=== PATIENT | female | born 1965 | race Caucasian/White ===

== ENCOUNTER 2023-09-19 15:53 | Outpatient (RCR) | payer OTHER, SELFPAY | END 2023-10-09 15:04 | disposition home or self-care (01) | LOC: PT 15:53 | PROVIDERS: PCP Family Medicine; Visit Provider Family Medicine | DX: R42 Dizziness and giddiness (principal) | CPT/HCPCS: 95992; 97112; 97161 ==

== ENCOUNTER 2025-06-01 19:36 | Outpatient (REF) | payer OTHER, SELFPAY ==
--- OUTSIDE RECORDS SUMMARY | 2025-06-01 13:45 | XMS_ITS ---
Author Name Auto Generated Organization [facility] Care Team Providers Care Migratory Worker Name Role Phone RYNE BLACKMON Referring Unavailable RYNE BLACKMON Attending Unavailable RYNE TOUSSAINT Attending Unavailable CARMEN MORENO Referring Unavailable BLACKMONRYNE Referring Unavailable RYNE BLACKMON Attending Unavailable RYNE TOUSSAINT Attending Unavailable CARMEN MORENO Referring Unavailable RYNE BLACKMON Referring Unavailable RYNE BLACKMON Attending Unavailable XIOMARA CASTILLO Attending Unavailable CARMEN MORENO Referring Unavailable XIOMARA CASTILLO Attending Unavailable CARMEN MORENO Referring Unavailable BLACKMON, RYNE Barajas Referring Unavailable RYNE BLACKMON Attending Unavailable RYNE BLACKMON Referring Unavailable DONNA CARRANZA Attending Unavailable Carmen Moreno Attending Unavailable Carmen Moreno Admitting Unavailable Carmen Moreno Attending Unavailable Ross, Carmen E. Admitting Unavailable Carmen Moreno Attending Unavailable Carmen Moreno Attending Unavailable Carmen Moreno Attending Unavailable Carmen Moreno Attending Unavailable Becca Hoang Attending Unavailable Carmen Moreno Attending Unavailable Carmen Moreno Attending Unavailable Carmen Moreno Admitting Unavailable Carmen Moreno Referring Unavailable Carmen Moreno Attending Unavailable PROBLEMS No Problem Records Found PROCEDURES No Procedure Records Found RESULTS FAMILY MEDICINE OFFICE/CLINI C NOTE Observed: 04/17/2025 2:54 PM Status: F Source: [facility] Medicine Office/Clini c Note HPI Staff Melissa is a 60 year old female presenting for acute pain Onset: 04/02/25 Fevers: no Sinus congestion: yes Sneezing: Ear pain: left ear is work than the right Ear itching, popping, fullness, ringing, muffled hearing: no Ear drainage: no Swollen nodes: no Sore throat: no Ear pain worse with chewing: no Itching: no Difficulty hearing: no Chest hurts only when coughing, has been using cough medicine, Mucinex, cough drops History of Present Illness pt presents today with URI symptoms Review of Systems PHQ Score Initial Depression Screen Score: 3 SCORE Detailed Depression Screen Score: 4 Total Depression Screen Score: 7 Physical Exam Vitals & Measurements T: 37.1 ???C(Tympanic) HR: 80(Peripheral) RR: 18 BP: 130/76 SpO2: 99% HT: 67 in HT: 170.0 cm WT: 82.1 kg WT: 180.999 lb BMI: 28.41 General: alert, no acute distress ENMT: oral mucosa moist, no pharyngeal erythema or exudate, ALLI TM full of fluid, right TM and canal red Cardiovascular: regular rate and rhythm, normal peripheral perfusion Respiratory: Lungs CTA, respirations non labored Extremities: no deformity, no trauma Neurological: oriented x 4, LOC appropriate for age, CN II-XII intact, motor strength equal & normal bilaterally, speech normal Assessment/Plan 1. Right otitis media (H66.91: Otitis media, unspecified, right ear) right otitis media noted on exam. will send in Augmentin Ordered: amoxicillin-clavulanate, = 1 tab(s), Oral, q12hr, X 7 day(s), # 14 tab(s), Refills(s) 0, Pharmacy: [facility], 170, cm, 04/17/25 15:01:00 EDT, Height/Length Dosing, 82.1, kg, 04/17/25 15:01:00 EDT, Weight Dosing brompheniramine/dextromethorphan/PSE, 5 mL, Oral, QID for cold symptoms, 200 mL, Refill(s) 0, [facility], 170, cm, 04/17/25 15:01:00 EDT, Height/Length Dosing, 82.1, kg, 04/17/25 15:01:00 EDT, Weight Dosing 2. Cough (R05.9: Cough, unspecified) severe bronchial cough will send Bromfed and Kenalog was given in office Ordered: amoxicillin-clavulanate, = 1 tab(s), Oral, q12hr, X 7 day(s), # 14 tab(s), Refills(s) 0, Pharmacy: [facility], 170, cm, 04/17/25 15:01:00 EDT, Height/Length Dosing, 82.1, kg, 04/17/25 15:01:00 EDT, Weight Dosing brompheniramine/dextromethorphan/PSE, 5 mL, Oral, QID for cold symptoms, 200 mL, Refill(s) 0, [facility], 170, cm, 04/17/25 15:01:00 EDT, Height/Length Dosing, 82.1, kg, 04/17/25 15:01:00 EDT, Weight Dosing 3. Fluid level behind tympanic membrane of both ears (H65.93: Unspecified nonsuppurative otitis media, bilateral) kenalog 40mg given in office today Ordered: amoxicillin-clavulanate, = 1 tab(s), Oral, q12hr, X 7 day(s), # 14 tab(s), Refills(s) 0, Pharmacy: [facility], 170, cm, 04/17/25 15:01:00 EDT, Height/Length Dosing, 82.1, kg, 04/17/25 15:01:00 EDT, Weight Dosing brompheniramine/dextromethorphan/PSE, 5 mL, Oral, QID for cold symptoms, 200 mL, Refill(s) 0, [facility], 170, cm, 04/17/25 15:01:00 EDT, Height/Length Dosing, 82.1, kg, 04/17/25 15:01:00 EDT, Weight Dosing 4. BMI 28.0-28.9,adult (Z68.28: Body mass index [BMI] 28.0-28.9, adult) BMI education given Ordered: amoxicillin-clavulanate, = 1 tab(s), Oral, q12hr, X 7 day(s), # 14 tab(s), Refills(s) 0, Pharmacy: [facility], 170, cm, 04/17/25 15:01:00 EDT, Height/Length Dosing, 82.1, kg, 04/17/25 15:01:00 EDT, Weight Dosing brompheniramine/dextromethorphan/PSE, 5 mL, Oral, QID for cold symptoms, 200 mL, Refill(s) 0, [facility], 170, cm, 04/17/25 15:01:00 EDT, Height/Length Dosing, 82.1, kg, 04/17/25 15:01:00 EDT, Weight Dosing 5. Non-smoker for medical reasons (Z78.9: Other specified health status) continue not smoking Ordered: amoxicillin-clavulanate, = 1 tab(s), Oral, q12hr, X 7 day(s), # 14 tab(s), Refills(s) 0, Pharmacy: [facility], 170, cm, 04/17/25 15:01:00 EDT, Height/Length Dosing, 82.1, kg, 04/17/25 15:01:00 EDT, Weight Dosing brompheniramine/dextromethorphan/PSE, 5 mL, Oral, QID for cold symptoms, 200 mL, Refill(s) 0, [facility], 170, cm, 04/17/25 15:01:00 EDT, Height/Length Dosing, 82.1, kg, 04/17/25 15:01:00 EDT, Weight Dosing Follow-up No qualifying data available Problem List/Past Medical History Ongoing Abnormal mammogram Annual physical exam BMI 27.0-27.9,adult Breast cancer screening Chronic pain of right knee Cough Eustachian tube disorder Fluid level behind tympanic membrane of both ears HLD (hyperlipidemia) Impacted ear wax Non-smoker Overweight (BMI 25.0-29.9) Primary insomnia Right otitis media Tension headache Historical No qualifying data Procedure/Surgical History Arthroscopy of knee, Removal of gallbladder. Medications Augmentin 875 mg oral tablet, 1 tab(s), Oral, q12hr Bromfed DM oral syrup, 5 mL, Oral, QID, PRN Lipitor 40 mg Tab, 40 mg= 1 tab(s), Oral, Daily, 1 refills Allergies No Known Medication Allergies Social History Alcohol Never., 09/22/2024 Substance Abuse Never., 09/22/2024 Tobacco Never (less than 100 in lifetime) Tobacco Use:. Never Smokeless Tobacco Use:. Household tobacco concerns: No. Yes, 03/23/2025 Family History Acute myocardial infarction: Father. Primary malignant neoplasm of female breast: Mother. Immunizations Vaccine Date Status Comments influenza virus vaccine, inactivated 08/27/2023 Given SARS-CoV-2 (COVID-19) [id number] 09/28/2022 Recorded influenza virus vaccine, inactivated 09/02/2022 Recorded influenza virus vaccine, inactivated 08/2022 Recorded SARS-CoV-2 (COVID-19) mRNA-1273 vaccine 10/05/2021 Given Prophylaxis influenza virus vaccine, inactivated 09/07/2021 Recorded SARS-CoV-2 (COVID-19) mRNA-1273 vaccine 03/05/2021 Recorded SARS-CoV-2 (COVID-19) mRNA-1273 vaccine 02/05/2021 Recorded influenza virus vaccine, inactivated 09/01/2020 Recorded influenza virus vaccine, inactivated 10/11/2019 Recorded influenza virus vaccine, inactivated 09/23/2018 Recorded influenza virus vaccine, inactivated 09/08/2018 Recorded influenza virus vaccine, inactivated 09/25/2016 Recorded Result Comment: Electronical ly Signed By: Becca Camacho.[email or web address]\Date and Time Signed: 04/17/25 15:11 EDT FAMILY MEDICINE OFFICE/CLINI C NOTE Observed: 03/23/2025 3:28 PM Status: F Source: [facility] Family Medicine Office/Clini c Note Chief Complaint 6m follow up HPI Staff 6m follow up Trazodone still helping with insomnia. Mammogram ordered in August. Done 12/15/24 Patient is here for follow up on hyperlipidemia: Do you have side effects from the medication? no Refill needed?: _ Yearly Lipid labs: _ Chol: 328 mg/dL High (06/23/24 15:55:00) HDL: 59 mg/dL (06/23/24 15:55:00) LDL Direct: 231 mg/dL High (06/23/24 15:55:00) Tri mg/dL High (06/23/24 15:55:00) VLDL: 50 mg/dL High (06/23/24 15:55:00) Has been seen in office 2x for sick visit. (dizziness) Earwax removed at last office encounter. Referral to [facility] @ [facility]. No office notes on [facility]. Has consult scheduled 03/31/25. MRI Shoulder 03/16/25 Does need refill of Lipitor History of Present Illness Patient presents for follow-up. Patient is longer dizzy. MRI done and shows no acute findings. Please see scanned report. Patient still having pain in the right ear. Patient is longer dizzy. Review of Systems PHQ Score Initial Depression Screen Score: 0 SCORE Physical Exam Vitals & Measurements T: 36.9 ???C(Tympanic) HR: 86(Peripheral) RR: 18 BP: 118/76 SpO2: 95% HT: 170 cm HT: 67 in WT: 80.7 kg WT: 177.913 lb BMI: 27.92 General: alert, no acute distress ENMT: oral mucosa moist, cannot visualize the TM on the right side as the patient is in too much pain. Dry skin noted in blocks the TM from view. Looks to be some ulceration on the bottom of the EAC where the patient uses her earplugs. Left ear is within normal limits. Cardiovascular: regular rate and rhythm, normal peripheral perfusion Respiratory: Lungs CTA, respirations non labored Extremities: no deformity, no trauma Neurological: oriented x 4, LOC appropriate for age, CN II-XII intact, motor strength equal & normal bilaterally, speech normal Abdomen: Soft, Nontender, Non-distended, + BS Assessment/Plan 1. Eustachian tube disorder (H69.90: Unspecified Eustachian tube disorder, unspecified ear) At this time we will send to ENT as patient has not had any improvement with the eustachian tube on the right-hand side. Very hard to examine the ear the patient is in so much pain. Ordered[place] [facility] [place] 2. HLD (hyperlipidemia) (E78.5: Hyperlipidemia, unspecified) Will refill Lipitor today. No issues. Ordered: [facility] [place] 3. Overweight (BMI 25.0-29.9) (E66.3: Overweight) Diet and exercise advised Ordered: [facility] [place] 4. Non-smoker (Z78.9: Other specified health status) Please continue not smoke Ordered: [facility] [place] Referral 5. BMI 27.0-27.9,adult (Z68.27: Body mass index [BMI] 27.0-27.9, adult) BMI education added Ordered: [facility] [place] Ref[place] 6. BPV (benign positional vertigo) (H81.10: Benign paroxysmal vertigo, unspecified ear) Resolved at this time. 7. Disorder of both eustachian tubes (H69.93: Unspecified Eustachian tube disorder, bilateral) As per #1. Follow-up No qualifying data available Problem List/Past Medical History Ongoing Abnormal mammogram Annual physical exam BMI 27.0-27.9,adult Breast cancer screening Chronic pain of right knee Eustachian tube disorder HLD (hyperlipidemia) Impacted ear wax Non-smoker Overweight (BMI 25.0-29.9) Primary insomnia Tension headache Historical No qualifying data Procedure/Surgical History Arthroscopy of knee, Removal of gallbladder. Medications Antivert 12.5 mg Tab, 12.5 mg= 1 tab(s), Oral, TID, PRN Lipitor 40 mg Tab, 40 mg= 1 tab(s), Oral, Daily, 1 refills traZODONE 50 mg Tab, 25 mg= 0.5 tab(s), Oral, Once a day (at bedtime), 1 refills Allergies No Known Medication Allergies Social History Alcohol Never., 09/22/2024 Substance Abuse Never., 09/22/2024 Tobacco Never (less than 100 in lifetime) Tobacco Use:. Never Smokeless Tobacco Use:. Household tobacco concerns: No. Yes, 03/23/2025 Family History Acute myocardial infarction: Father. Primary malignant neoplasm of female breast: Mother. Immunizations Vaccine Date Status Comments influenza virus vaccine, inactivated 08/27/2023 Given SARS-CoV-2 (COVID-19) [id number] 09/28/2022 Recorded influenza virus vaccine, inactivated 09/02/2022 Recorded influenza virus vaccine, inactivated 08/2022 Recorded SARS-CoV-2 (COVID-19) mRNA-1273 vaccine 10/05/2021 Given Prophylaxis influenza virus vaccine, inactivated 09/07/2021 Recorded SARS-CoV-2 (COVID-19) mRNA-1273 vaccine 03/05/2021 Recorded SARS-CoV-2 (COVID-19) mRNA-1273 vaccine 02/05/2021 Recorded influenza virus vaccine, inactivated 09/01/2020 Recorded influenza virus vaccine, inactivated 10/11/2019 Recorded influenza virus vaccine, inactivated 09/23/2018 Recorded influenza virus vaccine, inactivated 09/08/2018 Recorded influenza virus vaccine, inactivated 09/25/2016 Recorded Result Comment: Electronical ly Signed By: Carmen Moreno MD\.br\Date and Time Signed: 03/23/25 16:03 EDT AMBULATORY VISIT SUMMARY Observed: 03/23 3:28 PM Status: F Source: [facility] Ambulatory Visit Summary MELISSA LOWRY :1965 Visit Date:03/23/2025 Ambulatory Visit Instructions Your Diagnosis Eustachian tube disorder HLD (hyperlipidemia) Overweight (BMI 25.0-29.9) Non-smoker BMI 27.0-27.9,adult BPV (benign positional vertigo) Disorder of both eustachian tubes Your Care Team Attending Physician - Carmen Moreno MD Primary Care Physician - Carmen Moreno MD This Is Your Medications List atorvastatin (Lipitor 40 mg Tab) Contact prescribing physician if questions or concerns meclizine (Antivert 12.5 mg Tab) trazodone (traZODONE 50 mg Tab) Procedures Performed Arthroscopy of knee, Removal of gallbladder. Discharge Vitals Temperature (Tympanic) 36.9 ???C Heart Rate (Peripheral) 86 Respiratory Rate 18 Blood Pressure 118/76 Height 170 cm Height 67 in Weight 80.7 kg Weight 177.913 lb BMI 27.92 What to do next Someone Will Contact You Regarding These Appointments [facility] [place], ENT, 03/23/25 16:00:00 EDT, Eustachian tube disorder HLD (hyperlipidemia) Overweight (BMI 25.0-29.9) Non-smoker BMI 27.0-27.9,adult Medications What How Much When Why Instructions Unchanged atorvastatin (Lipitor 40 mg Tab) 1 Tablets By Mouth Every day Pickup at [facility] Unchanged meclizine (Antivert 12.5 mg Tab) 1 Tablets By Mouth 3 times a day as needed for for dizziness Dizziness Encounter for immunization Impacted ear wax BMI 28.0-28.9,adult Over weight Contact prescribing physician if questions or concerns Unchanged trazodone (traZODONE 50 mg Tab) 0.5 Tablets By Mouth Once a day (at bedtime) Annual physical exam Primary insomnia BMI 29.0-29.9,adult Over weight Nonsmoker Contact prescribing physician if questions or concerns Pharmacy Information [facility]: [address] [place], [place] [id number] [phone] Allergies No Known Medication Allergies Problems Ongoing - Any problem that you are currently receiving treatment for. Abnormal mammogram Annual physical exam BMI 27.0-27.9,adult Breast cancer screening Chronic pain of right knee Eustachian tube disorder HLD (hyperlipidemia) Impacted ear wax Non-smoker Overweight (BMI 25.0-29.9) Primary insomnia Tension headache Patient Survey You may receive a survey via text or e-mail asking about your office visit. Please share your experience with us by completing your survey. We appreciate your feedback and thank you for choosing us for your care. MR SHOULDER LEFT WO IV CONTRAST Observed: 03/16/2025 3:18 PM Status: F Source: [facility] EPIC Order Comment: Right total k nee 2023 EXAM: MR SHOULDER LEFT WO IV CONTRAST HISTORY: Shoulder pain. Rotator cuff tear. TECHNIQUE: Multiplanar multisequence MRI of the shoulder was performed Without contrast. COMPARISON: Shoulder radiographs February 19, 2025 FINDINGS: The acromioclavicular joint is intact. The acromion is curved. Coracoclavicular ligament intact. No subacromial/subdeltoid bursal fluid. Tiny low-grade articular surface tear of distal mid fibers of supraspinatus tendon just proximal to the footprint superimposed on mild tendinosis. Mild subscapularis tendinosis. Infraspinatus and teres minor tendons are intact. No atrophy or fatty infiltration of the rotator cuff musculature. The intra-articular and extra-articular long head biceps tendon is intact. The biceps tendon resides within the bicipital groove. Tear of the anterior superior through posterior superior labrum. Partial- thickness cartilage loss of the medial humeral head and glenoid without well-defined cartilage defect. No glenohumeral joint effusion . IMPRESSION: Tiny low-grade articular surface tear of distal mid fibers of supraspinatus tendon just proximal to the footprint superimposed on mild tendinosis. Mild subscapularis tendinosis. Tear of the anterior superior through posterior superior labrum. Mild glenohumeral osteoarthritis. ELECTRONICALLY SIGNED BY: Jesse Hammonds DO PROVIDER LETTER Observed: 02/17/2025 2:02 PM Status: F Source: [facility] Provider Letter February 17, 2025 [address] [place] [id number] : 1965 To Whom It May Concern, Please excuse above patient from work due to vertigo diagnosis. Date of Illness: From: 02-11-25 To: 02-26-25 May Return to Work On:02-27-25 Restrictions: _ Comments: _ Sincerely, [place] [address] PROVIDER LETTER Observed: 02/12/2025 11:22 AM Status: F Source: [facility] Provider Letter February 12, 2025 [address]RY [address] [place] [phone] : 1965 To Whom It May Concern, Please excuse above patient from work, due to medical Date of Illness: From: _ 02-11-25 To: _02-19-25 May Return to Work On: 02-20-25 Restrictions: _ Comments: _ patient is off due to vertigo Sincerely, [place] [address] PROVIDER LETTER Observed: 02/12/2025 11:19 AM Status: F Source: [facility] Provider Letter February 12, 2025 [address]SA L[address]RY [address] [place] [phone] : 1965 To Whom It May Concern, Please excuse above patient from work. Date of Illness: From: _02-11-25 To: _02-19-25 May Return to Work On:02-20-25 Restrictions: _ Comments: _ Sincerely, [address] [address] AMBULATORY VISIT SUMMARY Observed: 02/12 10:58 AM Status: F Source: [facility] Ambulatory Visit Summary MELISSA LOWRY :1965 Visit Date:02/12/2025 Ambulatory Visit Instructions Your Diagnosis Tension headache BPV (benign positional vertigo) BMI 28.0-28.9,adult Overweight (BMI 25.0-29.9) Non-smoker Impacted ear wax Your Care Team Attending Physician - Carmen Moreno MD Primary Care Physician - Carmen Moreno MD This Is Your Medications List atorvastatin (Lipitor 40 mg Tab) meclizine (Antivert 12.5 mg Tab) trazodone (traZODONE 50 mg Tab) Procedures Performed Arthroscopy of knee, Removal of gallbladder. Discharge Vitals Heart Rate (Peripheral) 77 Respiratory Rate 18 Blood Pressure 128/84 Height 170 cm Height 67 in Weight 81.5 kg Weight 179.677 lb BMI 28.2 What to do next Scheduled Follow-Up Appointments Sunday 3:30 PM EDT With: Carmen Moreno MD Where: [address] [id number]- Medications What How Much When Why Instructions Unchanged atorvastatin (Lipitor 40 mg Tab) 1 Tablets By Mouth Every day Unchanged meclizine (Antivert 12.5 mg Tab) 1 Tablets By Mouth 3 times a day as needed for for dizziness Dizziness Encounter for immunization Impacted ear wax BMI 28.0-28.9,adult Over weight Unchanged trazodone (traZODONE 50 mg Tab) 0.5 Tablets By Mouth Once a day (at bedtime) Annual physical exam Primary insomnia BMI 29.0-29.9,adult Over weight Nonsmoker Allergies No Known Medication Allergies Problems Ongoing - Any problem that you are currently receiving treatment for. Abnormal mammogram Annual physical exam BMI 28.0-28.9,adult BPV (benign positional vertigo) Breast cancer screening Chronic pain of right knee Eustachian tube disorder HLD (hyperlipidemia) Impacted ear wax Non-smoker Overweight (BMI 25.0-29.9) Primary insomnia Tension headache Patient Survey You may receive a survey via text or e-mail asking about your office visit. Please share your experience with us by completing your survey. We appreciate your feedback and thank you for choosing us for your care. FAMILY MEDICINE OFFICE/CLINI C NOTE Observed: 02/12/2025 10:58 AM Status: F Source: [facility] Family Medicine Office/Clini c Note Chief Complaint Dizziness HPI Staff Pt presents today due to dizziness & to get ears looked at. Pt was just in the office 02/09/25 for the same reasons. Referred to PT. Work note provided. Encouraged pt to increase fluids. Pt then called 02/11/25 requesting PT referral & work note. Pain in both ears. Did clean out Rt ear this AM. Still dizzy, has improved since Sunday. Did increase fluids. Now also having headaches. History of Present Illness Patient presents for continued dizziness new headache and ear problems. Headache has started this morning. Patient has a tight left neck muscle compared to the right with a discrepancy in shoulder height. Patient also tried to clean her ears this morning vigorously. Patient states she got wax out of her right ear compared to the left ear. Patient also states she is very dizzy and did not get into see physical therapy yet. Has been using Antivert as needed. Review of Systems PHQ Score Initial Depression Screen Score: 0 SCORE Physical Exam Vitals & Measurements HR: 77(Peripheral) RR: 18 BP: 128/84 SpO2: 98% HT: 67 in HT: 170 cm WT: 179.677 lb WT: 81.5 kg BMI: 28.2 General: alert, no acute distress ENMT: oral mucosa moist, impacted earwax on the left ear which was removed under microscope and spatula. TM was within normal limits once wax was removed. Cannot appreciate the TM on the right whether it is due to dried skin in the way versus a ruptured eardrum I am unsure which one is which. Will give precautions for possible eardrum rupture. Cardiovascular: regular rate and rhythm, normal peripheral perfusion Respiratory: Lungs CTA, respirations non labored Extremities: no deformity, no trauma Neurological: oriented x 4, LOC appropriate for age, CN II-XII intact, motor strength equal & normal bilaterally, speech normal Abdomen: Soft, Nontender, Non-distended, + BS Assessment/Plan 1. Tension headache (G44.209: Tension-type headache, unspecified, not intractable) Declines Meds. Advised stretching. OTC medication as needed. 2. BPV (benign positional vertigo) (H81.10: Benign paroxysmal vertigo, unspecified ear) Patient still experiencing vertigo. Has not heard from physical therapy. Will give off until patient can go to physical therapy. 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 3. BMI 28.0-28.9,adult (Z68.28: Body mass index [BMI] 28.0-28.9, adult) BMI education added 4. Overweight (BMI 25.0-29.9) (E66.3: Overweight) Diet and exercise advised 5. Non-smoker (Z78.9: Other specified health status) Please do not smoke. 6. Impacted ear wax (H61.20: Impacted cerumen, unspecified ear) Earwax was removed today. Earwax was removed on the left ear. Right ear either had dried skin versus less likely TM rupture. Patient did use irrigation this morning multiple times and very vigorously to try to clean out the right ear. So at this time we will continue to monitor. Precautions discussed in detail. Follow-up No qualifying data available Problem List/Past Medical History Ongoing Abnormal mammogram Annual physical exam BMI 28.0-28.9,adult BPV (benign positional vertigo) Breast cancer screening Chronic pain of right knee Eustachian tube disorder HLD (hyperlipidemia) Impacted ear wax Non-smoker Overweight (BMI 25.0-29.9) Primary insomnia Tension headache Historical No qualifying data Procedure/Surgical History Arthroscopy of knee, Removal of gallbladder. Medications Antivert 12.5 mg Tab, 12.5 mg= 1 tab(s), Oral, TID, PRN Lipitor 40 mg Tab, 40 mg= 1 tab(s), Oral, Daily, 1 refills traZODONE 50 mg Tab, 25 mg= 0.5 tab(s), Oral, Once a day (at bedtime), 1 refills Allergies No Known Medication Allergies Social History Alcohol Never., 09/22/2024 Substance Abuse Never., 09/22/2024 Tobacco Never (less than 100 in lifetime) Tobacco Use:. Never Smokeless Tobacco Use:. Household tobacco concerns: No. Yes, 02/12/2025 Family History Acute myocardial infarction: Father. Primary malignant neoplasm of female breast: Mother. Immunizations Vaccine Date Status Comments influenza virus vaccine, inactivated 08/27/2023 Given SARS-CoV-2 (COVID-19) mRNAMUL.ORD![id number] 09/28/2022 Recorded influenza virus vaccine, inactivated 09/02/2022 Recorded influenza virus vaccine, inactivated 08/2022 Recorded SARS-CoV-2 (COVID-19) mRNA-1273 vaccine 10/05/2021 Given Prophylaxis influenza virus vaccine, inactivated 09/07/2021 Recorded SARS-CoV-2 (COVID-19) mRNA-1273 vaccine 03/05/2021 Recorded SARS-CoV-2 (COVID-19) mRNA-1273 vaccine 02/05/2021 Recorded influenza virus vaccine, inactivated 09/01/2020 Recorded influenza virus vaccine, inactivated 10/11/2019 Recorded influenza virus vaccine, inactivated 09/23/2018 Recorded influenza virus vaccine, inactivated 09/08/2018 Recorded influenza virus vaccine, inactivated 09/25/2016 Recorded Result Comment: Electronical ly Signed By: Rajat TOBAR, Carmen Marion\.br\Date and Time Signed: 02/12/25 11:32 EDT FAMILY MEDICINE OFFICE/CLINI C NOTE Observed: 02/09/2025 5:38 PM Status: F Source: [facility] Family Medicine Office/Clini c Note Chief Complaint Acute Visit The patient presents with dizziness. HPI Staff Pt presents today for acute visit. Lightheaded Onset: this morning Duration: intermittent through out the day Aggravated by: bending down, then getting up History of Present Illness The patient is a 59-year-old female presenting with dizziness and dehydration concerns. Her dizziness has been more pronounced in the summer months and may be linked to insufficient hydration. Working in a hot environment aggravates her symptoms. The patient mentioned multiple stressors in her life which might affect her overall health, including family issues and handling multiple property-related responsibilities. Her BMI falls in the overweight category, and she confirms she does not smoke. No recent new treatments or relevant medications contributing to dehydration are reported, and she sustains her episodes without much relief from prior hydration attempts. - Encouraged maintenance of adequate hydration levels. - Discussed the importance of setting personal boundaries to manage stress. - Advised continued monitoring of BMI with lifestyle and dietary modifications aimed at weight management. - Reviewed the benefits of using self-help strategies, such as reading the book Boundaries for stress management. Review of Systems PHQ Score Initial Depression Screen Score: 1 SCORE Physical Exam Vitals & Measurements HR: 87(Peripheral) RR: 18 BP: 116/78 SpO2: 100% HT: 67 in HT: 170.2 cm WT: 81.8 kg WT: 180.338 lb BMI: 28.24 General: alert, no acute distress ENMT: oral mucosa moist Cardiovascular: Regular rate and rhythm, normal peripheral perfusion Respiratory: Lungs clear to auscultation, respirations non labored Extremities: no deformity, no trauma Neurological: oriented x 4, level of consciousness appropriate for age, CN II- XII intact, motor strength equal & normal bilaterally, speech normal Abdomen: Soft, Non-tender, Non-distended, + Bowel sounds Assessment/Plan 1. BPV (benign positional vertigo) (H81.10: Benign paroxysmal vertigo, unspecified ear) The focus is on hydrating sufficiently, especially given the patient's work conditions. She is encouraged to drink adequate fluids and was provided with a work note if dizziness does not improve. Referral for physical therapy is suggested if symptoms persist or worsen over time. 2. BMI 28.0-28.9,adult (Z68.28: Body mass index [BMI] 28.0-28.9, adult) Management strategies and lifestyle adjustments discussed to maintain or achieve a healthy BMI. Ordered: meclizine, 12.5 mg = 1 tab(s), Oral, TID, PRN for dizziness, # 30 tab(s), Refills(s) 0, Pharmacy: [facility], 170.2, cm, 08/27/23 18:23:00 EDT, Height/Length Dosing, 82.5, kg, 08/27/23 18:23:00 EDT, Weight Dosing meclizine, 12.5 mg = 1 tab(s), Oral, TID, PRN for dizziness, # 30 tab(s), Refills(s) 0, Pharmacy: [facility], 170.2, cm, 02/09/25 17:18:00 EDT, Height/Length Dosing, 81.8, kg, 02/09/25 17:18:00 EDT, Weight Dosing 3. Overweight (BMI 25.0-29.9) (E66.3: Overweight) Focus will be on improving dietary habits and lifestyle changes for long-term weight management. Routine updates on weight and BMI are advised. Ordered: meclizine, 12.5 mg = 1 tab(s), Oral, TID, PRN for dizziness, # 30 tab(s), Refills(s) 0, Pharmacy: [facility], 170.2, cm, 08/27/23 18:23:00 EDT, Height/Length Dosing, 82.5, kg, 08/27/23 18:23:00 EDT, Weight Dosing meclizine, 12.5 mg = 1 tab(s), Oral, TID, PRN for dizziness, # 30 tab(s), Refills(s) 0, Pharmacy: [facility], 170.2, cm, 02/09/25 17:18:00 EDT, Height/Length Dosing, 81.8, kg, 02/09/25 17:18:00 EDT, Weight Dosing 4. Nonsmoker (Z78.9: Other specified health status) Maintenance of her nonsmoking status is crucial for overall health benefits. 59-year-old female with a history of overweight presenting with dizziness and dehydration concerns. The history is suggestive of dehydration-induced dizziness aggravated by a warm work environment. The patient's occupational setting and lack of sufficient hydration, along with lifestyle stresses, are essential contributors. Overweight status is acknowledged but remains a secondary consideration in relation to the dizziness. Differential includes dehydration and possible vestibular cause. I discussed with the patient the likely cause of her dizziness being linked to dehydration, especially considering her hot working conditions and insufficient fluid intake. Emphasis was placed on increasing hydration as a simple first step, with mention of possibly exploring vestibular causes if this does not improve her symptoms. I also spoke about stress management, referencing the use of boundary-setting techniques and the potential impact of overwhelming life events on her health. Patient consented to explore hydration as a primary management strategy and agreed to follow-up if dizziness persists, for possible referral to physical therapy. Additionally, we discussed her BMI and reinforced lifestyle modifications for weight management as preventive care steps and to reduce the risk of future health issues. Follow-up No qualifying data available Problem List/Past Medical History Ongoing Abnormal mammogram Annual physical exam BMI 28.0-28.9,adult BPV (benign positional vertigo) Breast cancer screening Chronic pain of right knee Eustachian tube disorder HLD (hyperlipidemia) Impacted ear wax Non-smoker Nonsmoker Overweight Overweight (BMI 25.0-29.9) Primary insomnia Historical No qualifying data Procedure/Surgical History Arthroscopy of knee, Removal of gallbladder. Medications Antivert 12.5 mg Tab, 12.5 mg= 1 tab(s), Oral, TID, PRN Lipitor 40 mg Tab, 40 mg= 1 tab(s), Oral, Daily, 1 refills traZODONE 50 mg Tab, 25 mg= 0.5 tab(s), Oral, Once a day (at bedtime), 1 refills Allergies No Known Medication Allergies Social History Alcohol Never., 09/22/2024 Substance Abuse Never., 09/22/2024 Tobacco Never (less than 100 in lifetime) Tobacco Use:. Never Smokeless Tobacco Use:. Household tobacco concerns: No. Yes, 02/09/2025 Family History Acute myocardial infarction: Father. Primary malignant neoplasm of female breast: Mother. Immunizations Vaccine Date Status Comments influenza virus vaccine, inactivated 08/27/2023 Given SARS-CoV-2 (COVID-19) mRNAMUL.[id number] 09/28/2022 Recorded influenza virus vaccine, inactivated 09/02/2022 Recorded influenza virus vaccine, inactivated 08/2022 Recorded SARS-CoV-2 (COVID-19) mRNA-1273 vaccine 10/05/2021 Given Prophylaxis influenza virus vaccine, inactivated 09/07/2021 Recorded SARS-CoV-2 (COVID-19) mRNA-1273 vaccine 03/05/2021 Recorded SARS-CoV-2 (COVID-19) mRNA-1273 vaccine 02/05/2021 Recorded influenza virus vaccine, inactivated 09/01/2020 Recorded influenza virus vaccine, inactivated 10/11/2019 Recorded influenza virus vaccine, inactivated 09/23/2018 Recorded influenza virus vaccine, inactivated 09/08/2018 Recorded influenza virus vaccine, inactivated 09/25/2016 Recorded Result Comment: Electronical ly Signed By: Carmen Moreno MD\.br\Date and Time Signed: 02/09/25 17:38 EDT AMBULATORY VISIT SUMMARY Observed: 02/09 5:37 PM Status: F Source: [facility] Ambulatory Visit Summary MELISSA LOWRY :1965 Visit Date:02/09/2025 Ambulatory Visit Instructions Your Diagnosis BPV (benign positional vertigo) BMI 28.0-28.9,adult Overweight (BMI 25.0-29.9) Nonsmoker Your Care Team Attending Physician - Carmen Moreno MD Primary Care Physician - Carmen Moreno MD This Is Your Medications List atorvastatin (Lipitor 40 mg Tab) meclizine (Antivert 12.5 mg Tab) trazodone (traZODONE 50 mg Tab) Procedures Performed Arthroscopy of knee, Removal of gallbladder. Discharge Vitals Heart Rate (Peripheral) 87 Respiratory Rate 18 Blood Pressure 116/78 Height 170.2 cm Height 67 in Weight 81.8 kg Weight 180.338 lb BMI 28.24 What to do next Scheduled Follow-Up Appointments Sunday 3:30 PM EDT With: Carmen Moreno MD Where: [facility] [address] [address]- Medications What How Much When Why Instructions Unchanged atorvastatin (Lipitor 40 mg Tab) 1 Tablets By Mouth Every day Unchanged meclizine (Antivert 12.5 mg Tab) 1 Tablets By Mouth 3 times a day as needed for for dizziness Dizziness Encounter for immunization Impacted ear wax BMI 28.0-28.9,adult Over weight Unchanged trazodone (traZODONE 50 mg Tab) 0.5 Tablets By Mouth Once a day (at bedtime) Annual physical exam Primary insomnia BMI 29.0-29.9,adult Over weight Nonsmoker Allergies No Known Medication Allergies Problems Ongoing - Any problem that you are currently receiving treatment for. Abnormal mammogram Annual physical exam BMI 28.0-28.9,adult BPV (benign positional vertigo) Breast cancer screening Chronic pain of right knee Eustachian tube disorder HLD (hyperlipidemia) Impacted ear wax Non-smoker Nonsmoker Overweight Overweight (BMI 25.0-29.9) Primary insomnia Patient Survey You may receive a survey via text or e-mail asking about your office visit. Please share your experience with us by completing your survey. We appreciate your feedback and thank you for choosing us for your care. MA MAMM SCREEN W/CAD IF PERF AND 3D ALLI Observed: 12/15/2024 3:18 PM Status: F Source: [facility] Exam Date/Time: 12/15/2024 15:28 EST Reason for Exam: F51.01;Screening Report IMPRESSION: BIRADS 2 BENIGN FINDINGS, NORMAL INTERVAL FOLLOW-UP.12 MONTH RECALL. CLINICAL HISTORY: Screening, F51.01. COMPARISON: 03/12/2023 and 03/20/2023. COMMENT: Routine views and tomosynthesis views of both breasts were obtained. There are scattered areas of fibroglandular density. Small nodular densities in the medial right breast and a small nodular density in the medial left breast appear stable. No dominant breast mass nor neoplastic calcifications are identified in either breast. No significant change is noted. The examination was reviewed with Computer Aided Detection. Breast Density: No Mammography is very important to your health. The current [employer] and National [employer] guidelines recommends annual mammography beginning at age 40. This facility utilizes a reminder system to ensure all patients receive reminder notifications at the appropriate time based on the recommendations of this exam. Board Certified Radiologists. Accredited by the ACR and FDA. Ordering Provider: Carmen Moreno FINAL REPORT Dictated: 12/15/2024 4:57 pm Enrrique Casillas M.D. Signed (Electronic Signature): 12/15/2024 4:57 pm Signed by: Enrrique Casillas M.D. Transcribed by: DANAE Technologist: KIKE Assessment: BI-RADS Category 2-Benign finding Recommendation: Normal interval follow-up FAMILY MEDICINE OFFICE/CLINI C NOTE Observed: 09/22/2024 3:40 PM Status: F Source: [facility] Family Medicine Office/Clini c Note HPI Staff Melissa is a 59 year old female presenting for 3 month follow up insomnia SIA added trazodone for sleep Trazodone helping with the sleep when she remembers to use it questions/concerns: needs a mammogram ordered last one February 2023 Her cholesterol numbers up and she's taking the atorvastatin faithfully Will need her atorvastatin refilled but has to call in her mail away pharmacy info to [facility] History of Present Illness See staff HPI. Review of Systems PHQ Score Initial Depression Screen Score: 0 SCORE Physical Exam Vitals & Measurements T: 37.0 ???C(Temporal Artery) HR: 80(Peripheral) RR: 18 BP: 120/82 SpO2: 96% HT: 67 in HT: 170.2 cm WT: 83.0 kg WT: 182.6 lb BMI: 28.65 General: alert, no acute distress ENMT: oral mucosa moist, Cardiovascular: regular rate and rhythm, normal peripheral perfusion Respiratory: Lungs CTA, respirations non labored Extremities: no deformity, no trauma Neurological: oriented x 4, LOC appropriate for age, CN II-XII intact, motor strength equal & normal bilaterally, speech normal Abdomen: Soft, Nontender, Non-distended, + BS Assessment/Plan 1. Primary insomnia (F51.01: Primary insomnia) Improved on trazodone. Will refill medication at this time. Ordered: trazodone, 25 mg = 0.5 tab(s), Oral, Once a day (at bedtime), # 45 tab(s), Refills(s) 1, Pharmacy: [facility], 170.2, cm, 09/22/24 15:28:00 EDT, Height/Length Dosing, 83, kg, 09/22/24 15:28:00 EDT, Weight Dosing MA Mamm Screen w/CAD if perf and 3D Alli 2. BMI 29.0-29.9,adult (Z68.29: Body mass index [BMI] 29.0-29.9, adult) BMI education added Ordered: trazodone, 25 mg = 0.5 tab(s), Oral, Once a day (at bedtime), # 45 tab(s), Refills(s) 1, Pharmacy: [facility], 170.2, cm, 09/22/24 15:28:00 EDT, Height/Length Dosing, 83, kg, 09/22/24 15:28:00 EDT, Weight Dosing MA Mamm Screen w/CAD if perf and 3D Alli 3. Nonsmoker (Z78.9: Other specified health status) Please continue not to smoke Ordered: trazodone, 25 mg = 0.5 tab(s), Oral, Once a day (at bedtime), # 45 tab(s), Refills(s) 1, Pharmacy: [facility], 170.2, cm, 09/22/24 15:28:00 EDT, Height/Length Dosing, 83, kg, 09/22/24 15:28:00 EDT, Weight Dosing MA Mamm Screen w/CAD if perf and 3D Alli 4. Overweight (E66.3: Overweight) Diet and exercise advised Ordered: trazodone, 25 mg = 0.5 tab(s), Oral, Once a day (at bedtime), # 45 tab(s), Refills(s) 1, Pharmacy: [facility], 170.2, cm, 09/22/24 15:28:00 EDT, Height/Length Dosing, 83, kg, 09/22/24 15:28:00 EDT, Weight Dosing MA Mamm Screen w/CAD if perf and 3D Alli 5. Breast cancer screening (Z12.39: Encounter for other screening for malignant neoplasm of breast) Mammogram ordered Ordered: MA Mamm Screen w/CAD if perf and 3D Alli 6. HLD (hyperlipidemia) (E78.5: Hyperlipidemia, unspecified) Encouraged compliance of Lipitor. Ordered: MA Mamm Screen w/CAD if perf and 3D Alli Orders: atorvastatin, 40 mg = 1 tab(s), Oral, Daily, # 90 tab(s), Refills(s) 1, Pharmacy: [facility], 170.2, cm, 09/22/24 15:28:00 EDT, Height/Length Dosing, 83, kg, 09/22/24 15:28:00 EDT, Weight Dosing Follow-up No qualifying data available Problem List/Past Medical History Ongoing Abnormal mammogram Annual physical exam Breast cancer screening Chronic pain of right knee Eustachian tube disorder HLD (hyperlipidemia) Impacted ear wax Non-smoker Overweight Primary insomnia Historical No qualifying data Procedure/Surgical History Arthroscopy of knee, Removal of gallbladder. Medications Antivert 12.5 mg Tab, 12.5 mg= 1 tab(s), Oral, TID, PRN Lipitor 40 mg Tab, 40 mg= 1 tab(s), Oral, Daily, 1 refills traZODONE 50 mg Tab, 25 mg= 0.5 tab(s), Oral, Once a day (at bedtime), 1 refills Allergies No Known Medication Allergies Social History Alcohol Never., 09/22/2024 Substance Abuse Never., 09/22/2024 Tobacco Never (less than 100 in lifetime) Tobacco Use:., 09/22/2024 Family History Acute myocardial infarction: Father. Primary malignant neoplasm of female breast: Mother. Immunizations Vaccine Date Status Comments influenza virus vaccine, inactivated 08/27/2023 Given SARS-CoV-2 (COVID-19) mRNAMUL.[id number] 09/28/2022 Recorded influenza virus vaccine, inactivated 09/02/2022 Recorded influenza virus vaccine, inactivated 08/2022 Recorded SARS-CoV-2 (COVID-19) mRNA-1273 vaccine 10/05/2021 Given Prophylaxis influenza virus vaccine, inactivated 09/07/2021 Recorded SARS-CoV-2 (COVID-19) mRNA-1273 vaccine 03/05/2021 Recorded SARS-CoV-2 (COVID-19) mRNA-1273 vaccine 02/05/2021 Recorded influenza virus vaccine, inactivated 09/01/2020 Recorded influenza virus vaccine, inactivated 10/11/2019 Recorded influenza virus vaccine, inactivated 09/23/2018 Recorded influenza virus vaccine, inactivated 09/08/2018 Recorded influenza virus vaccine, inactivated 09/25/2016 Recorded Result Comment: Electronical ly Signed By: Carmen Moreno MD\.br\Date and Time Signed: 09/22/24 15:40 EDT AMBULATORY VISIT SUMMARY Observed: 09/22 3:39 PM Status: F Source: [facility] Ambulatory Visit Summary MELISSA LOWRY :1965 Visit Date:09/22/2024 Ambulatory Visit Instructions Your Diagnosis Primary insomnia BMI 29.0-29.9,adult Nonsmoker Overweight Breast cancer screening HLD (hyperlipidemia) Your Care Team Attending Physician - Carmen Moreno MD Primary Care Physician - Carmen Moreno MD This Is Your Medications List atorvastatin (Lipitor 40 mg Tab) trazodone (traZODONE 50 mg Tab) Contact prescribing physician if questions or concerns meclizine (Antivert 12.5 mg Tab) Procedures Performed Arthroscopy of knee, Removal of gallbladder. Discharge Vitals Temperature (Temporal Artery) 37.0 ???C Heart Rate (Peripheral) 80 Respiratory Rate 18 Blood Pressure 120/82 Height 170.2 cm Height 67 in Weight 83.0 kg Weight 182.6 lb BMI 28.65 What to do next Scheduled Follow-Up Appointments Sunday 3:30 PM EDT With: Carmen Moreno MD Where: [address] [address]- Medications What How Much When Why Instructions Unchanged atorvastatin (Lipitor 40 mg Tab) 1 Tablets By Mouth Every day Pickup at [facility] Unchanged trazodone (traZODONE 50 mg Tab) 0.5 Tablets By Mouth Once a day (at bedtime) Annual physical exam Primary insomnia BMI 29.0-29.9,adult Over weight Nonsmoker Pickup at [facility] Unchanged meclizine (Antivert 12.5 mg Tab) 1 Tablets By Mouth 3 times a day as needed for for dizziness Dizziness Encounter for immunization Impacted ear wax BMI 28.0-28.9,adult Over weight Contact prescribing physician if questions or concerns Pharmacy Information [facility]: [address] [place], [place] [id number] [phone] Allergies No Known Medication Allergies Problems Ongoing - Any problem that you are currently receiving treatment for. Abnormal mammogram Annual physical exam Breast cancer screening Chronic pain of right knee Eustachian tube disorder HLD (hyperlipidemia) Impacted ear wax Non-smoker Overweight Primary insomnia Patient Survey You may receive a survey via text or e-mail asking about your office visit. Please share your experience with us by completing your survey. We appreciate your feedback and thank you for choosing us for your care. LIPID PANEL Collected: 06/23/2024 3:55 PM Status: F Source: [facility] TYPE CODE TESTS RESULT OUT OF RANGE REFERENCE UNITS LAB 2093-3(LOINC) CHOLESTEROL:M CNC:PT:SER/PL :QN: 328 High 120-200 mg/dL LAB 2085-07([facility]) CHOLESTEROL.I N HDL:MCNC:PT:S ER/PLAS:QN: 59 Unknown mg/dL Result Comment: '>= 60 LOW R ISK' '<= 40 HIGH RISK' LAB 2088-11([facility]) CHOLESTEROL.I N LDL:MCNC:PT:S ER/PLAS:QN: 231 High <=129 mg/dL LAB 2571-8([facility]) TRIGLYCERIDE: MCNC:PT:SER/P LAS:QN: 250 High <=149 mg/dL LAB 29937-8([facility]) CHOLESTEROL.I N VLDL:MCNC:PT: SER/PLAS:QN:C ALCULATED 50 High 7-40 mg/dL Performed By: #### [id number] # ### [facility] [address] [place] [address] EGFR Collected: 3:55 PM Status: F Source: [facility] Order Comment: Order added b y Discern Expert. TYPE CODE TESTS RESULT OUT OF RANGE REFERENCE UNITS LAB [id number]([facility]) eGFR 101 Normal >=59 mL/min/1 .7 3 m2 Performed By: #### [id number] #### [facility] [address] [place] [address] CBC W/ AUTO DIFF Collected: 06/23/2024 3:55 PM Statu s: F Source: [facility] TYPE CODE TESTS RESULT OUT OF RANGE REFERENCE UNITS LAB 73699-4([facility]) LEUKOCYTES^^DANIELLE ECTED FOR NUCLEATED ERYTHROCYTES:NCN C:PT:BLD:QN:AUTO MATED COUNT 6.9 Normal 4.0-11.0 E9/L LAB 789-8([facility]) ERYTHROCYTES:NCN C:PT:BLD:QN:AUTO MATED COUNT 4.6 Normal 4.3-5.9 E12/L LAB 718-7([facility]) HEMOGLOBIN:MCNC: PT:BLD:QN: 13.7 Normal 12.0-16.0 gm/dL LAB 4544-3([facility]) HEMATOCRIT:VFR:P T:BLD:QN:AUTOMAT ED COUNT 40.5 Normal 34.0-46.0 % LAB 788-0([facility]) ERYTHROCYTE DISTRIBUTION WIDTH:RATIO:PT:R BC:QN:AUTOMATED COUNT 14.6 High 10.9-14.2 % LAB 785-6([facility]) ERYTHROCYTE MEAN CORPUSCULAR HEMOGLOBIN:ENTMA SS:PT:RBC:QN:AUT OMATED COUNT 29.9 Normal 27.0-34.0 pg LAB 786-4([facility]) ERYTHROCYTE MEAN CORPUSCULAR HEMOGLOBIN CONCENTRATION:MC NC:PT:RBC:QN:AUT OMATED COUNT 33.8 Normal 31.4-36.0 gm/dL LAB 787-2([facility]) ERYTHROCYTE MEAN CORPUSCULAR VOLUME:ENTVOL:PT :RBC:QN:AUTOMATE D COUNT 88.5 Normal 80.0-100.0 fL LAB 72731-5([facility]) PLATELET MEAN VOLUME:ENTVOL:PT :BLD:QN:AUTOMATE D COUNT 8.0 Normal 6.4-10.8 fL LAB 777-3([facility]) PLATELETS:NCNC:P T:BLD:QN:AUTOMAT ED COUNT 365.0 Normal 150.0-500.0 E9/L LAB 87389-2([facility]) NEUTROPHILS/100 LEUKOCYTES:NFR:P T:BLD:QN: 49.0 Normal 36.0-75.0 % LAB 731-0([facility]) LYMPHOCYTES:NCNC :PT:BLD:QN:AUTOM ATED COUNT 39.9 Normal 14.0-50.0 % LAB 742-7([facility]) MONOCYTES:NCNC:P T:BLD:QN:AUTOMAT ED COUNT 0.5 Normal 0.2-1.0 E9/L LAB 713-8([facility]) EOSINOPHILS/100 LEUKOCYTES:NFR:P T:BLD:QN:AUTOMAT ED COUNT 3.7 Normal 0.0-8.0 % LAB 704-7(LOINC) BASOPHILS:NCNC:P T:BLD:QN:AUTOMAT ED COUNT 0.6 Normal 0.0-2.0 % LAB 751-8(LOINC) NEUTROPHILS:NCNC :PT:BLD:QN:AUTOM ATED COUNT 3.4 Normal 2.0-7.5 E9/L LAB 56389-5([facility]) LYMPHOCYTES:NCNC :PT:BLD:QN: 2.8 Normal 1.0-4.0 E9/L LAB 87010-2([facility]) EOSINOPHILS:NCNC :PT:BLD:QN: 0.3 Normal 0.0-0.5 E9/L LAB 88803-5([facility]) BASOPHILS/LEUKOC YTES:NFR.DF:PT:B LD:QN:AUTOMATED COUNT 0.0 Normal 0.0-0.2 E9/L Performed By: #### [id number] # ### [facility] [address] [place] [address] CMP Collected: 06/23/2024 3:55 PM Status: F Source: [facility] TYPE CODE TESTS RESULT OUT OF RANGE REFERENCE UNITS LAB 2345-7([facility]) GLUCOSE:MCNC:P T:SER/PLAS:QN: 107 Normal 55-199 mg/dL LAB 3094-0([facility]) UREA NITROGEN:MCNC: PT:SER/PLAS:QN : 19 Normal 5-21 mg/dL LAB 2160-0([facility]) CREATININE:MCN C:PT:SER/PLAS: QN: 0.7 Normal 0.5-1.3 mg/dL LAB 12652-2([facility]) CALCIUM:MCNC:P T:SER/PLAS:QN: 9.3 Normal 8.9-11.1 mg/dL LAB 2951-2([facility]) SODIUM:SCNC:PT :SER/PLAS:QN: 135 Normal 135-145 mmol/L LAB 2823-3([facility]) POTASSIUM:SCNC :PT:SER/PLAS:Q N: 4.1 Normal 3.5-5.3 mmol/L LAB 2075-0([facility]) CHLORIDE:SCNC: PT:SER/PLAS:QN : 102 Normal 101-111 mmol/L LAB 2028-9([facility]) CARBON DIOXIDE:SCNC:P T:SER/PLAS:QN: 26 Normal 21-31 mmol/L LAB 6768-6([facility]) ALKALINE PHOSPHATASE:CC NC:PT:SER/PLAS :QN: 60 Normal 21-98 Int._Unit /L LAB 1974-2([facility]) BILIRUBIN:MCNC :PT:SER/PLAS:Q N: 0.4 Normal 0.0-1.1 mg/dL LAB 1751-7([facility]) ALBUMIN:MCNC:P T:SER/PLAS:QN: 4.5 Normal 3.3-5.0 gm/dL LAB 2885-2([facility]) PROTEIN:MCNC:P T:SER/PLAS:QN: 7.4 Normal 6.0-7.8 gm/dL LAB 1744-2([facility]) ALANINE AMINOTRANSFERA SE:CCNC:PT:SER /PLAS:QN:NO ADDITION OF P-5'-P 16 Normal 6-46 Int._Unit /L LAB 1920-8([facility]) ASPARTATE AMINOTRANSFERA SE:CCNC:PT:SER /PLAS:QN: 19 Normal 5-43 Int._Unit /L LAB 3097-3([facility]) UREA NITROGEN/CREAT ININE:MRTO:PT: SER/PLAS:QN: 27 High 10-20 No Units LAB 66780-2([facility]) ANION GAP:SCNC:PT:SE R/PLAS:QN: 11 Normal 6-16 mEq/L LAB 04015-0([facility]) GLOBULIN:MCNC: PT:SER:QN:CALC ULATED 2.9 Normal 1.4-4.0 gm/dL LAB 88448-7([facility]) ALBUMIN/GLOBUL IN:MCRTO:PT:SE R:QN: 1.6 Normal 1.1-2.2 Performed By: #### [id number] # ### [facility] [address] [place] [address] [facility] MEDICINE OFFICE/CLINI C NOTE Observed: 06/23/2024 3:47 PM Status: F Source: [facility] Family Medicine Office/Clini c Note HPI Staff Melissa is a 59 year old female presenting for 6 month follow up insomnia She would like her cholesterol checked felt it's been awhile Doing fine, sleeps about 7 hours a night phq: 3 phq9: 6 questions/concerns: History of Present Illness Patient is here for a full physical. Only concern is for sleep. Patient is stressed with family issues. Outside of that no anxiety or depression. Review of Systems PHQ Score Initial Depression Screen Score: 3 SCORE Detailed Depression Screen Score: 3 Total Depression Screen Score: 6 Physical Exam Vitals & Measurements T: 36.7 ?C(Temporal Artery) HR: 100(Peripheral) RR: 16 BP: 102/70 SpO2: 96% HT: 67 in HT: 170.2 cm WT: 84.9 kg WT: 186.78 lb BMI: 29.31 General: alert, no acute distress ENMT: oral mucosa moist, Cardiovascular: regular rate and rhythm, normal peripheral perfusion Respiratory: Lungs CTA, respirations non labored Extremities: no deformity, no trauma Neurological: oriented x 4, LOC appropriate for age, CN II-XII intact, motor strength equal & normal bilaterally, speech normal Abdomen: Soft, Nontender, Non-distended, + BS Assessment/Plan 1. Annual physical exam (Z00.00: Encounter for general adult medical examination without abnormal findings) Anticipatory guidance given. Discussed diet and exercise. Discussed immunizations. Ordered: trazodone, 25 mg = 0.5 tab(s), Oral, Once a day (at bedtime), # 15 tab(s), Refills(s) 0, Pharmacy: [facility], 170.2, cm, 06/23/24 15:26:00 EDT, Height/Length Dosing, 84.9, kg, 06/23/24 15:26:00 EDT, Weight Dosing CBC w/ Auto Diff Comprehensive Metabolic Panel Lipid Panel MA Mamm Screen w/CAD if perf and 3D Alli 2. Primary insomnia (F51.01: Primary insomnia) Will try trazodone to help. Follow-up in 3 months. Ordered: trazodone, 25 mg = 0.5 tab(s), Oral, Once a day (at bedtime), # 15 tab(s), Refills(s) 0, Pharmacy: [facility], 170.2, cm, 06/23/24 15:26:00 EDT, Height/Length Dosing, 84.9, kg, 06/23/24 15:26:00 EDT, Weight Dosing CBC w/ Auto Diff Comprehensive Metabolic Panel Lipid Panel MA Mamm Screen w/CAD if perf and 3D Alli 3. BMI 29.0-29.9,adult (Z68.29: Body mass index [BMI] 29.0-29.9, adult) BMI education given Ordered: trazodone, 25 mg = 0.5 tab(s), Oral, Once a day (at bedtime), # 15 tab(s), Refills(s) 0, Pharmacy: [facility], 170.2, cm, 06/23/24 15:26:00 EDT, Height/Length Dosing, 84.9, kg, 06/23/24 15:26:00 EDT, Weight Dosing CBC w/ Auto Diff Comprehensive Metabolic Panel Lipid Panel MA Mamm Screen w/CAD if perf and 3D Alli 4. Over weight (E66.3: Overweight) Diet and exercise advised Ordered: trazodone, 25 mg = 0.5 tab(s), Oral, Once a day (at bedtime), # 15 tab(s), Refills(s) 0, Pharmacy: [facility], 170.2, cm, 06/23/24 15:26:00 EDT, Height/Length Dosing, 84.9, kg, 06/23/24 15:26:00 EDT, Weight Dosing CBC w/ Auto Diff Comprehensive Metabolic Panel Lipid Panel MA Mamm Screen w/CAD if perf and 3D Alli 5. Nonsmoker (Z78.9: Other specified health status) Please continue not to smoke. Ordered: trazodone, 25 mg = 0.5 tab(s), Oral, Once a day (at bedtime), # 15 tab(s), Refills(s) 0, Pharmacy: [facility], 170.2, cm, 06/23/24 15:26:00 EDT, Height/Length Dosing, 84.9, kg, 06/23/24 15:26:00 EDT, Weight Dosing CBC w/ Auto Diff Comprehensive Metabolic Panel Lipid Panel MA Mamm Screen w/CAD if perf and 3D Alli 6. Breast cancer screening (Z12.39: Encounter for other screening for malignant neoplasm of breast) Ordered: MA Mamm Screen w/CAD if perf and 3D Alli Follow-up No qualifying data available Problem List/Past Medical History Ongoing Abnormal mammogram Annual physical exam Breast cancer screening Chronic pain of right knee Eustachian tube disorder Impacted ear wax Non-smoker Overweight Primary insomnia Historical No qualifying data Procedure/Surgical History Arthroscopy of knee, Removal of gallbladder. Medications Antivert 12.5 mg Tab, 12.5 mg= 1 tab(s), Oral, TID, PRN traZODONE 50 mg Tab, 25 mg= 0.5 tab(s), Oral, Once a day (at bedtime) Allergies No Known Medication Allergies Social History Alcohol Current, Wine, 1-2 times per month, 12/26/2021 Substance Abuse Previous treatment: None., 12/26/2021 Tobacco Never (less than 100 in lifetime) Tobacco Use:. Never Smokeless Tobacco Use:. Household tobacco concerns: No., 06/23/2024 Family History Acute myocardial infarction: Father. Primary malignant neoplasm of female breast: Mother. Immunizations Vaccine Date Status Comments influenza virus vaccine, inactivated 08/27/2023 Given SARS-CoV-2 (COVID-19) [id number] 09/28/2022 Recorded influenza virus vaccine, inactivated 09/02/2022 Recorded influenza virus vaccine, inactivated 08/2022 Recorded SARS-CoV-2 (COVID-19) mRNA-1273 vaccine 10/05/2021 Given Prophylaxis influenza virus vaccine, inactivated 09/07/2021 Recorded SARS-CoV-2 (COVID-19) mRNA-1273 vaccine 03/05/2021 Recorded SARS-CoV-2 (COVID-19) mRNA-1273 vaccine 02/05/2021 Recorded influenza virus vaccine, inactivated 09/01/2020 Recorded influenza virus vaccine, inactivated 10/11/2019 Recorded influenza virus vaccine, inactivated 09/23/2018 Recorded influenza virus vaccine, inactivated 09/08/2018 Recorded influenza virus vaccine, inactivated 09/25/2016 Recorded Result Comment: Electronical ly Signed By: Carmen Moreno MD\.br\Date and Time Signed: 06/23/24 15:47 EDT AMBULATORY VISIT SUMMARY Observed: 06/23 3:45 PM Status: F Source: [facility] Ambulatory Visit Summary MELISSA LOWRY :1965 Visit Date:06/23/2024 Ambulatory Visit Instructions Your Diagnosis Annual physical exam Primary insomnia BMI 29.0-29.9,adult Over weight Nonsmoker Your Care Team Attending Physician - Carmen Moreno MD Primary Care Physician - Carmen Moreno MD This Is Your Medications List meclizine (Antivert 12.5 mg Tab) trazodone (traZODONE 50 mg Tab) Procedures Performed Arthroscopy of knee, Removal of gallbladder. Discharge Vitals Temperature (Temporal Artery) 36.7 ?C Heart Rate (Peripheral) 100 Respiratory Rate 16 Blood Pressure 102/70 Height 170.2 cm Height 67 in Weight 84.9 kg Weight 186.78 lb BMI 29.31 What to do next Scheduled Follow-Up Appointments Sunday 3:30 PM EDT With: Rajat TOBAR, Carmen Marion Where: [address] [address]- You Need to Complete the Following CBC w/ Auto Diff, Blood, Routine collect, 06/23/24, Order for future visit, Lab Collect, Annual physical exam Primary insomnia BMI 29.0-29.9,adult Over weight Nonsmoker, Print Label By Order Location Comprehensive Metabolic Panel, Blood, Routine collect, 06/23/24, Order for future visit, Lab Collect, Annual physical exam Primary insomnia BMI 29.0- 29.9,adult Over weight Nonsmoker, Print Label By Order Location Lipid Panel, Blood, Routine collect, 06/23/24, Order for future visit, Lab Collect, Annual physical exam Primary insomnia BMI 29.0-29.9,adult Over weight Nonsmoker, Print Label By Order Location Medications What How Much When Why Instructions New trazodone (traZODONE 50 mg Tab) 0.5 Tablets By Mouth Once a day (at bedtime) Annual physical exam Primary insomnia BMI 29.0-29.9,adult Over weight Nonsmoker Pickup at [facility] Unchanged meclizine (Antivert 12.5 mg Tab) 1 Tablets By Mouth 3 times a day as needed for for dizziness Dizziness Encounter for immunization Impacted ear wax BMI 28.0-28.9,adult Over weight Pharmacy Information [facility]: [address] [place], [place] [id number] [phone] Allergies No Known Medication Allergies Problems Ongoing - Any problem that you are currently receiving treatment for. Abnormal mammogram Annual physical exam Chronic pain of right knee Eustachian tube disorder Impacted ear wax Non-smoker Overweight Primary insomnia Patient Survey You may receive a survey via text or e-mail asking about your office visit. Please share your experience with us by completing your survey. We appreciate your feedback and thank you for choosing us for your care. AMBULATORY VISIT SUMMARY Observed: 06/23 3:42 PM Status: F Source: [facility] Ambulatory Visit Summary MELISSA LOWRY :1965 Visit Date:06/23/2024 Ambulatory Visit Instructions Your Diagnosis Annual physical exam Primary insomnia BMI 29.0-29.9,adult Over weight Nonsmoker Your Care Team Attending Physician - Carmen Moreno MD Primary Care Physician - Carmen Moreno MD This Is Your Medications List meclizine (Antivert 12.5 mg Tab) Procedures Performed Arthroscopy of knee, Removal of gallbladder. Discharge Vitals Temperature (Temporal Artery) 36.7 ?C Heart Rate (Peripheral) 100 Respiratory Rate 16 Blood Pressure 102/70 Height 170.2 cm Height 67 in Weight 84.9 kg Weight 186.78 lb BMI 29.31 What to do next Scheduled Follow-Up Appointments Sunday 3:30 PM EDT With: Carmen Moreno MD Where: [place] [id number]- You Need to Complete the Following CBC w/ Auto Diff, Blood, Routine collect, 06/23/24, Order for future visit, Lab Collect, Annual physical exam Primary insomnia BMI 29.0-29.9,adult Over weight Nonsmoker, Print Label By Order Location Comprehensive Metabolic Panel, Blood, Routine collect, 06/23/24, Order for future visit, Lab Collect, Annual physical exam Primary insomnia BMI 29.0- 29.9,adult Over weight Nonsmoker, Print Label By Order Location Lipid Panel, Blood, Routine collect, 06/23/24, Order for future visit, Lab Collect, Annual physical exam Primary insomnia BMI 29.0-29.9,adult Over weight Nonsmoker, Print Label By Order Location Medications What How Much When Why Instructions Unchanged meclizine (Antivert 12.5 mg Tab) 1 Tablets By Mouth 3 times a day as needed for for dizziness Dizziness Encounter for immunization Impacted ear wax BMI 28.0-28.9,adult Over weight Allergies No Known Medication Allergies Problems Ongoing - Any problem that you are currently receiving treatment for. Abnormal mammogram Annual physical exam Chronic pain of right knee Eustachian tube disorder Impacted ear wax Non-smoker Overweight Primary insomnia Patient Survey You may receive a survey via text or e-mail asking about your office visit. Please share your experience with us by completing your survey. We appreciate your feedback and thank you for choosing us for your care. CONSULTATION NOTE Observed: 02/15/2024 11:43 AM Status: F Source: [facility] [id number]#1.00TIFF CONSULTATION NOTE Observed: 01/30/2024 11:43 AM Status: F Source: [facility] [id number]#1.00TIFF CONSULTATION NOTE Observed: 12/06/2023 11:43 AM Status: F Source: [facility] [id number]#1.00TIFF ALLERGIES DATE TYPE / CODE NAME / CODE REACTION SEVERITY SOURCE /[id number](SNOME D CT) No Known Medication Allergies [facility] ENCOUNTERS ADMIT/DISCHARGE ACCOUNT NUMBER ADMITTING ENCOUNTER CLASS LOCATION SOURCE 06/01/2025/06/01/20 [id number] Ambulatory Building:NO MS BCP OB [facility] 04/17/2025/04/17/20 [id number] Ambulatory FT [place]FT FM [place] [facility] 03/31/2025/03/31/20 [id number] Ambulatory Building:NO MS ORTHO [facility] 03/23/2025/03/23/20 25 [id number] Ambulatory FT [place]:FT [place]: CD:[id number] 85 [facility] 03/16/2025/03/16/20 [id number] Ambulatory Building:NO MSSHMR [facility] 03/03/2025/03/03/20 [id number] Ambulatory Building:NO MS SWS PT [facility] 02/24/2025/02/25/20 25 [id number] Ambulatory Building:NO MS SWS PT [facility] 02/20/2025/02/21/20 25 [id number] Ambulatory Building:NO MS SWS PT [facility] 02/19/2025/02/20/20 25 [id number] Ambulatory Building:NO MS ORTHO [facility] 02/19/2025/02/20/20 25 [id number] Ambulatory Building:NO MS ORTHO [facility] 02/17/2025/02/18/20 25 [id number] Ambulatory Building:NO MS SWS PT [facility] 02/12/2025/02/13/20 25 [id number] Ambulatory FT [place]:FT [place]: CD:[id number] [address] [place] [address] 02/09/2025/02/10/20 [id number] Ambulatory FT [place]:FT [place]: CD:[id number] [address] [place] [address] 01/29/2025/01/30/20 25 [id number] Ambulatory Building:NO MS ORTHO [facility] 01/29/2025/01/30/20 25 [id number] Ambulatory Building:NO MS ORTHO [facility] 12/15/2024/12/15/19 25 [id number] Carmen Moreno Ambulatory FTMCBuildin g:FT MA [facility] 09/22/2024/09/22/20 24 [id number] Ambulatory FT [place]:FT [place]: CD:[id number] 85 [facility] 06/23/2024 [id number] Carmen Moreno Ambulatory FTMCBuildin g:FT LAB [facility] 06/23/2024/06/23/20 24 [id number] Carmen Moreno Ambulatory FTMCBuildin g:FT LAB [facility] 06/23/2024/06/23/20 24 [id number] Ambulatory FT [place]:FT [place]: CD:[id number] [address] [place] [address] 06/10/2024/06/10/20 24 [id number] Ambulatory Building:NO MS ORTHO [facility] 06/10/2024/06/10/20 [id number] Ambulatory Building:NO MS [facility] 01/30/2023 [id number] Ambulatory FT [facility] lding:FT [facility] PAYERS ENCOUNTER GUARANTOR PAYER SUBSCRIBER SOURCE 06/01/2025 MELISSA LOWRYB: [id number] [place] [address]Vei: (HP) (WP) Primary Insurance:[employer]EP olicy Number: [id number] Date:2022-11-26 MELISSA Cummings BRYANTB: [id number] [place] [address] [facility] EP[facility] 04/17/2025 MELISSA LOWRYDOB: [id number] [place] CTTel: ~~(4 1 (HP) Primary Insurance:Healthscope BenefitsPolicy Number: [id number] Date:2024-12-08[address] [address], [place] [address]KD[facility]/31/2025 MELISSA LOWRYB: [id number] [place] [address]Seo: (HP) (WP) Primary Insurance:HEALTHSCOPEP olicy Number: [id number] Date:2022-11-26 MELISSA Cummings ESSENCEDOB: [id number] [place] [address] [facility] EP[facility] 03/23/2025 MELISSA Cummings ESSENCEDOB: [id number] [place] CTTel: ~~(4 1 (HP) Primary Insurance:Healthscope BenefitsPolicy Number: [id number] Date:2023-12-21[address] [address], [place] [address]VI: [facility] 03/16/2025 MELISSA LOWRYDOB: [id number] [place] [address]Bjr: (HP) (WP) Primary Insurance:HEALTHSCOPEP oly Number: [id number] Date:2022-11-26 MELISSA LOWRYDOB: [id number] [facility] [place] [address] [facility] EP[facility] 03/03/2025 MELISSA LOWRYDOB: [id number] [place] [address]Hck: (HP) (WP) Primary Insurance:HEALTHSCOPEP [facility] Number: [id number] Date:2022-11-26 MELISSA LOWRYDOB: [id number] [facility] [place] [address] [facility] 02/24/2025 MELISSA LOWRYDOB: [id number] [place] [address]Evt: (HP) (WP) Primary Insurance:HEALTHSCOPEP [facility] Number: [id number] Date:2022-11-26 MELISSA LOWRYDOB: [id number] [facility] [place] [address] [facility] 02/20/2025 MELISSA LOWRYDOB: [id number] [place] [address]Eny: (HP) (WP) Primary Insurance:[facility]ALTHSCOPEP [facility] Number: [id number] Date:2022-11-26 MELISSA LOWRYDOB: [id number] [place] [address] [facility] EP[facility] 02/19/2025 MELISSA LOWRYDOB: [id number] [facility] [place] [address]Txb: (HP) (WP) Primary Insurance:HE[employer]SCOPEP olicfern Number: [id number] Date:2022-11-26 MELISSA HURTADOB: [id number] [place] [address] [facility] EP[facility] 02/19/2025 MELISSA HURTADOB: [id number] [place] [address]Tel: (HP) (WP) Primary Insurance:HEALTHSCOPEP olicfern Number: [id number] Date:2022-11-26 MELISSA LOWRYB: [id number] [place] [address] [facility] 02/17/2025 MELISSA Cummings BRYANTB: [id number] [place] [address]Tel: (HP) (WP) Primary Insurance:HEALTHSCOPEP olicfern Number: [id number] Date:2022-11-26 MELISSA HURTADOB: [id number] [place] [address] [facility] EP[facility] 02/12/2025 MELISSA LOWRYB: [id number] [place] CTTel: ~~(4 1 (HP) Primary Insurance:Healthscope BenefitsPolicy Number: [id number] Date:2024-12-08[address] [address], [place] [address]TH: MELISSA PORTILLO [facility] 02/09/2025 MELISSA Cummings BRYANTB: [id number] [place] CTTel: ~~(4 1 (HP) Primary Insurance:Healthscope BenefitsPolicy Number: [id number] Date:2024-12-08[address] [address], [place] [address]FL: [facility] 01/29/2025 MELISSA HURTADOB: [id number] [place] [address]Ryv: (HP) (WP) Primary Insurance:HEALTHSCOPEP olicy Number: [id number] Date:2022-11-26 MELISSA HURTADOB: [id number] [place] [address] [facility] 01/29/2025 MELISSA HURTADOB: [id number] [place] [address]Gso: (HP) (WP) Primary Insurance:HEALTHSCOPEP olicy Number: [id number] Date:2022-11-26 MELISSA LOWRYB: [id number] [place] [address] [facility] 12/15/2024 MELISSA LOWRYDOB: [id number] [place] CTTel: ~~(4 1 (HP) Primary Insurance:Healthscope BenefitsPolicy Number: [id number] Date:2024-12-08[address] [place] [address]KS: MELISSA Cummings [facility] 09/22/2024 MELISSA LOWRYDOB: [id number] [place] CTTel: ~~(4 1 (HP) Primary Insurance:Healthscope BenefitsPolicy Number: [id number] Date:2023-12-21[address] [place] [address]MA: MELISSA Cummings [facility] 06/23/2024 MELISSA LOWRYDOB: [id number] [place] CTTel: ~~(4 1 (HP) Primary Insurance:Healthscope BenefitsPolicy Number: [id number] Date:2024-06-23[address] [address], [place] [address]OQ: MELISSA Cummings [facility] 06/23/2024 MELISSA LOWRYDOB: [id number] [place] CTTel: ~~(4 1 (HP) Primary Insurance:Healthscope BenefitsPolicy Number: [id number] Date:2023-12-21[address] [address], [place] [address]VY: MELISSA Cummings [facility] 06/10/2024 MELISSA LOWRYDOB: [id number] [place] [address]Gph: (HP) (WP) Primary Insurance:HEALTHSCOPEP olicy Number: [id number] Date:2022-11-26 MELISSA LOWRYDOB: [id number] [place] [address] [facility] 06/10/2024 MELISSA LOWRYDOB: [id number] [place] [address]Vdy: (HP) (WP) Primary Insurance:HE[employer]SCOPEP olicy Number: [id number] Date:2022-11-26 MELISSA LOWRYDOB: [id number] [place] [address] [facility] 01/30/2023 MELISSA LOWRYDOB: [id number] [place] CTTel: ~~(4 1 (HP) Primary Insurance:Healthscope BenefitsPolicy Number: [id number] Date:2023-01-25[address] [address], [place] [address]UT: MELISSA Cummings [facility]
--- OUTSIDE RECORDS SUMMARY | 2025-06-01 14:00 | XMS_ITS | Encounter Summary ---
Author Organization [facility] Address [address] [facility] [place] [address] Care Team Providers Care Rattlesnake Farmer Name Role Phone Tim Earl MD Primary Care Provider [phone] Reason for Visit * Reason Comments Gynecologic Exam Encounter Details Date Type Department Care Team (Late st Contact Info) Description 06/01/2025 2:00 PM EDT Office Visit [facility] BCP OB [address] [facility] [place] [address] Kady Hernandez PA [address] [place], [id number] Well woman exam with routine gynecological exam; Breast cancer screening by mammogram; Osteoporosis, post-menopausal ; Encounter for screening mammogram for malignant neoplasm of breast; H/O: hysterectomy; Urinary urgency Social History Tobacco Use Types Packs/Day Years Used Date Smoking Tobacco: Never Smokeless Tobacco: Never Alcohol Use Standard Drinks/Week Comments Yes 2 (1 standard drink = 0.6 oz pur e alcohol) Caffeine: 1-2 cups/day Comments Unknown Sex and Gender Information Value Date Recorded Sex Assigned at Not on file Legal Sex Female 6:59 PM EDT Gender Identity Female 02/07/2023 6:59 PM EDT Sexual Orientation Not on file documented as of this encounter Last Filed Vital Signs Vital Sign Reading Time Taken Comments Blood Pressure 128/78 06/01/2025 2:12 PM EDT Pulse - - Temperature - - Respiratory Rate - - Oxygen Saturation - - Inhaled Oxygen Concentration - - Weight 82.6 kg (182 lb) 06/01/2025 2:12 PM EDT Height 170.2 cm (5' 7 ) 06/01/2025 2:12 PM EDT Body Mass Index 28.51 06/01/2025 2:12 PM EDT documented in this encounter Progress Notes * KAITLIN Levine - 06/01/2025 2:00 PM EDT Reason for Appointment: Patient ID: Jessica Méndez is a 60 y.o. female who presents for Gynecologic Exam Patient presents today for Annual Exam. MEDICATIONS Current Outpatient Medications Medication Instructions ??? atorvastatin (LIPITOR) 40 mg, Daily ALLERGIES No Known Allergies PROBLEMS Active Ambulatory Problems Diagnosis Date Noted ??? Chronic pain of right knee 05/12/2023 ??? Localized osteoarthritis of right knee 05/15/2023 ??? Acute postoperative pain of right knee 01/05/2024 ??? S/P total knee arthroplasty, right 01/05/2024 ??? Cervicalgia 02/13/2025 ??? Balance disorder 02/13/2025 ??? BPPV (benign paroxysmal positional vertigo), right 02/17/2025 ??? H/O: hysterectomy 06/01/2025 Resolved Ambulatory Problems Diagnosis Date Noted ??? No Resolved Ambulatory Problems Past Medical History: Diagnosis Date ??? Arthritis ??? Ear pain, left ??? Hearing loss in left ear ??? Hyperlipidemia ??? LSOM (left serous otitis media) HISTORY PAST MEDICAL HISTORY SOCIAL HISTORY Past Medical History: Diagnosis Date ??? Arthritis ??? Ear pain, left ??? Hearing loss in left ear ??? Hyperlipidemia ??? LSOM (left serous otitis media) Social History Tobacco Use ??? Smoking status: Never ??? Smokeless tobacco: Never Vaping Use ??? Vaping status: Never Used Substance Use Topics ??? Alcohol use: Yes Alcohol/week: 2.0 - 6.0 standard drinks of alcohol Types: 2 - 6 Standard drinks or equivalent per week Comment: Caffeine: 1-2 cups/day ??? Drug use: Never FAMILY HISTORY Family History Problem Relation Name Age of Onset ??? Breast cancer Mother ??? Heart disease Father ??? Hyperlipidemia Father ??? No Known Problems Sister 2 sisters ??? Heart disease Paternal Grandmother ??? Heart disease Paternal Grandfather SURGICAL HISTORY Past Surgical History: Procedure Laterality Date ??? CHOLECYSTECTOMY 1979's ??? KNEE SURGERY Right 03/02/2023 R knee scope - MTP ??? PARTIAL HYSTERECTOMY 2005 ??? TONSILLECTOMY child ??? TOTAL KNEE ARTHROPLASTY Right 01/04/2024 w/MTP ??? VAGINAL DELIVERY 2 births REVIEW OF SYSTEMS Review of Systems: Review of Systems Constitutional: Negative. HENT: Negative. Eyes: Negative. Respiratory: Negative. Cardiovascular: Negative. Gastrointestinal: Negative. Genitourinary: Positive for urgency. Musculoskeletal: Negative. Skin: Negative. Neurological: Negative. All other systems reviewed and are negative. Hematological: Negative. Endocrine: Negative. Allergic/Immunologic: Negative. OBJECTIVE Objective: Physical Exam Constitutional: Appearance: Normal appearance. She is well-developed. Genitourinary: Vulva normal. Vaginal cuff intact. Right Adnexa: not tender and no mass present. Left Adnexa: not tender and no mass present. Cervix is absent. No cervical discharge. Uterus is absent. Breasts: Breasts are soft. Right: Normal. Left: Normal. HENT: Head: Normocephalic. Nose: Nose normal. Mouth/Throat: Mouth: Mucous membranes are moist. Cardiovascular: Rate and Rhythm: Normal rate and regular rhythm. Pulmonary: Effort: Pulmonary effort is normal. Breath sounds: Normal breath sounds. Abdominal: General: Bowel sounds are normal. There is no distension. Palpations: Abdomen is soft. Tenderness: There is no abdominal tenderness. There is no guarding or rebound. Musculoskeletal: General: No swelling. Normal range of motion. Cervical back: Normal range of motion. Right lower leg: No edema. Left lower leg: No edema. Neurological: General: No focal deficit present. Mental Status: She is alert and oriented to person, place, and time. Skin: General: Skin is warm and dry. Psychiatric: Mood and Affect: Mood normal. Behavior: Behavior normal. Vitals and nursing note reviewed. Exam conducted with a threshing operator present. Vitals: Estimated body mass index is 30.62 kg/m?? as calculated from the following: Height as of 03/31/25: 5' 5 . Weight as of 03/31/25: 184 lb. BP: No LMP recorded. ASSESSMENT & PLAN ICD-10-CM 1. Well woman exam with routine gynecological exam Z01.419 Bilateral screening mammogram Bilateral screening mammogram 2. Breast cancer screening by mammogram Z12.31 THIN PREP TIS PAP AND HR HPV DNA 3. Osteoporosis, post-menopausal M81.0 DEXA bone density 4. Encounter for screening mammogram for malignant neoplasm of breast Z12.31 Bilateral screening mammogram Bilateral screening mammogram 5. H/O: hysterectomy Z90.710 Annual: Patient presents today for an annual exam. Patient states she is doing well and has complaints of urinary urgency/leakage which has worsened over the past month. Pap was obtained without difficulty and patient given mammogram/Dexa scan order to have scheduled/obtained. Patient has mammogram done yearly through PCP. Patients mother from stage 4 breast cancer. Patient denies any other menopausal symptoms and will be referred to Urology for urinary incontinence and urgency. Patient voiced that she is unable to make it to any medical office for any appointment until after 3:30pm. Orders Placed This Encounter Procedures ??? Bilateral screening mammogram ??? DEXA bone density Follow Up: Patient is to return in one year for annual unless needed otherwise. Documented by Alma Friend LPN on behalf of: KAITLIN Levine documented in this encounter Plan of Treatment Upcoming Encounters Date Type Department Care Team (Late st Contact Info) Description 06/04/2025 3:30 PM EDT Clinical Support [facility] NEL [address] [place] [address] Rosalina Caballero, [facility] [address] [place] [address] 06/08/2025 4:20 PM EDT Office Visit [facility] NMA POD [address] [place] [address] Delonte Butt, DPM FACFAS [address] [place] [address] 06/10/2025 3:30 PM EDT Office Visit [facility] [place]HA [place] [address] [place] [address] MarioNick medina Forrest, DO [address] [place] [address] 01/28/2026 3:30 PM EST Office Visit [facility] NB ORTHO [address] [place] [address] Holden Egan, DO [address] [place] [address] 06/07/2026 4:00 PM EDT Office Visit [facility] BCP OB [address] [facility] [address] Wong Garcia, DO [address] [place] [address] Scheduled Orders Name Type Priority Associated Diagnoses Orde r Schedule Bilateral screening mammogram Imaging Routine Well woman exam with routine gynecological exam Encounter for screening mammogram for malignant neoplasm of breast Expected: 06/01/2025 (Approximate), Expires: 08/02/2026 DEXA bone density Imaging Routine Osteoporosis, post-menopausal Expected: 06/01/2025 (Approximate), Expires: 06/01/2026 THIN PREP TIS PAP AND HR HPV DNA Pathology and Cytology Routine Breast cancer screening by mammogram Ordered: 06/01/2025 documented as of this encounter Visit Diagnoses Diagnosis Well woman exam with routine gynecological exam Routine gynecological examination Breast cancer screening by mammogram Osteoporosis, post-menopausal Senile osteoporosis Encounter for screening mammogram for malignant neoplasm of breast H/O: hysterectomy Acquired absence of both cervix and uterus Urinary urgency Urgency of urination documented in this encounter Care Teams Rattlesnake Farmer Relationship Specialty Start Date End Date Tim Earl MD [address] [place] [address] PCP - General Family Medicine 01/29/25 documented as of this encounter
--- OUTSIDE RECORDS SUMMARY | 2025-06-01 19:43 | XMS_ITS | Encounter Summary ---
Author Organization [facility] Address [address] [facility] [place] [address] Care Team Providers Care Front Desk Representative Name Role Phone Tim Earl MD Primary Care Provider [phone] Encounter Details Date Type Department Care Team (Late Contact Info) Description 06/01/2025 Bamboo flowsheet [facility] BCP OB [address] [facility] [place] [phone] Kady Hernandez PA [address] [address] [place], [place] [address] Social History Tobacco Use Types Packs/Day Years [...] on file documented as of this encounter Plan of Treatment Upcoming Encounters Date Type Department Care Team (Late st Contact Info) Description 06/04/2025 3:30 PM EDT Clinical Support [facility] AUD [address] [facility] [place] [address] Rosalina Caballero, [facility] [address] [facility] [place] [address] 06/08/2025 4:20 PM EDT Office Visit [facility] NMA POD [address] [place] [address] Delonte Butt, DPM FACFAS [address] [place] [address] 06/10/2025 3:30 PM EDT Office Visit [facility] ENT [place] [address] [place] [address] Nick Walton, DO [address] [address] 01/28/2026 3:30 PM EST Office Visit [facility] NB ORTHO [address] [place] [address] Holden Egan, DO [address] [place] [address] 06/07/2026 4:00 PM EDT Office Visit [facility] BCP OB [address] [place] [address] Wong Garcia, DO [address] [place] [address] documented as of this encounter Visit Diagnoses Not on filedocumented in this encounter Care Teams Front Desk Representative Relationship Specialty Start Date End Date Tmi Earl MD [address] [place] [address] PCP - General Family Medicine 01/29/25 documented as of this encounter
--- OUTSIDE RECORDS SUMMARY | 2025-06-01 19:43 | XMS_ITS | Encounter Summary ---
Author Organization [facility] Address [address] [place] [address] Care Team Providers Care Alcohol Still Operator Name Role Phone Tim Earl MD Primary Care Provider [phone] Encounter Details Date Type Department Care Team (Late Contact Info) Description 05/22/2025 Telephone [facility] TOSHA CHAMBERLAINY [address] [place] [address] Nick Walton, DO [address] [place] [address] Social History Tobacco Use Types Packs/Day Years [...] on file documented as of this encounter Miscellaneous Notes * Telephone Encounter - Shabana Tobin - 05/22/2025 10:27 AM EDT 2nd contact attempt left message for a return call. documented in this encounter Plan of Treatment Upcoming Encounters Date Type Department Care Team (Late Contact Info) Description 06/04/2025 3:30 PM EDT Clinical Support [facility] AUD [address] [place] [address] Rosalina Caballero, [facility]A [address] [place] [address] 06/08/2025 4:20 PM EDT Office Visit [facility] NMA POD [address] [place] [address] Delonte Butt, DPM FACFAS [address] [place] [address] 06/10/2025 3:30 PM EDT Office Visit [facility] TOSHA CHAMBERLAINY [address] [place] [address] Nick Walton, DO [address] [place] [address] 01/28/2026 3:30 PM EST Office Visit [facility] NB ORTHO [address] [place] [address] Holden Egan, DO [address] [place] [address] 06/07/2026 4:00 PM EDT Office Visit [facility] BCP OB [address] [place] [address] Wong Garcia, DO [address] [place] [address] documented as of this encounter Visit Diagnoses Not on filedocumented in this encounter Care Teams Alcohol Still Operator Relationship Specialty Start Date End Date Tim Earl MD [address] [place] [address] PCP - General Family Medicine 01/29/25 documented as of this encounter
--- OUTSIDE RECORDS SUMMARY | 2025-06-01 19:43 | XMS_ITS | Encounter Summary ---
Author Organization [facility] Address [address] [place] [address] Care Team Providers Care Corrugator Machine Operator Name Role Phone Tim Earl MD Primary Care Provider [phone] Encounter Details Date Type Department Care Team (Late Contact Info) Description 06/01/2025 Telephone [address] [address] [place] [phone] Alma Friend LPN Social History Tobacco Use Types Packs/Day Years [...] encounter Miscellaneous Notes * Telephone Encounter - Alma Friend LPN - 06/01/2025 2:43 PM EDT Patient needs to be referred to Urology--see office note from 06/01/25 documented in this encounter Plan of Treatment Upcoming Encounters Date Type Department Care Team (Late Contact Info) Description 06/04/2025 3:30 PM EDT Clinical Support [facility] [address] [place] [address] Rosalina Caballero, [facility] [address] [place] [address] 06/08/2025 4:20 PM EDT Office Visit [facility] NMA POD [address] [place] [address] Delonte Butt, DPM FACFAS [address] [place] [address] 06/10/2025 3:30 PM EDT Office Visit [facility] ENT [place] [address] [place] [address] Nick Walton, DO [address] [place] [address] 01/28/2026 3:30 PM EST Office Visit [facility] NB ORTHO [address] [place] [phone] Holden Egan, DO [address] [place] [address] 06/07/2026 4:00 PM EDT Office Visit [facility] BCP OB [address] [place] [address] Wong Garcia, DO [address] [address] documented as of this encounter Visit Diagnoses Not on filedocumented in this encounter Care Teams Corrugator Machine Operator Relationship Specialty Start Date End Date Tim Earl MD [address] [place], [place] [phone] PCP - General Family Medicine 01/29/25 documented as of this encounter
--- OUTSIDE RECORDS SUMMARY | 2025-06-01 19:44 | XMS_ITS | Encounter Summary ---
Author Organization [facility] Address [address] [place] [address] Care Team Providers Care Receptionist/Telephone Operator Name Role Phone Tim Earl MD Primary Care Provider [phone] Tim Earl MD Primary Care Provider [phone] Encounter Details Date Type Department Care Team (Late st Contact Info) Description 12/10/2023 Clinisync Result Encounter NOMS External Department Unsolicited Holden Egan, DO [address] [place] [address] Social History Tobacco Use Types Packs/Day Years [...] Clinical Support [facility] AUD [address] [place] [address] Rosalina Caballero, [facility] [place] [address] [place] [address] 06/08/2025 4:20 PM EDT Office Visit [facility] NMA POD [address] [place] [address] Delonte Butt, DPM FACFAS [address] [place] [address] 06/10/2025 3:30 PM EDT Office Visit [facility] ENT [place] [address] [place] [phone] Nick Walton, DO [address] [place] [address] 01/28/2026 3:30 PM EST Office Visit [facility] NB ORTHO [address] [place] [phone] Holden Egan, DO [address] [place] [address] 06/07/2026 4:00 PM EDT Office Visit [facility] BCP OB [address] [facility] [place] [place] [address] Wong Garcia, DO [address] [address] documented as of this encounter Procedures Procedure Name Priority Date/Time Associated Diagnosis Comments XR CHEST 2 VIEWS 12/10/2023 1:43 PM EST documented in this encounter Results * XR CHEST 2 VIEWS (12/10/2023 1:43 PM EST) Anatomical Region Laterality Modality Other 12/10/2023 1:43 PM EST Narrative 12/11/2023 10:41 AM EST Exam Date/Time: 12/10/2023 13:58 EST Reason for Exam: M17.11 Report IMPRESSION: NO EVIDENCE OF ACTIVE CHEST DISEASE. CLINICAL HISTORY: M17.11. PST COMMENT: The heart is normal in size. The mediastinum is unremarkable. The lungs appear clear. No infiltration nor pleural effusion is evident. Ordering Provider: Holden Egan FINAL REPORT Dictated: 12/11/2023 10:38 am Enrrique Casillas M.D. Signed (Electronic Signature): 12/11/2023 10:38 am Signed by: Enrrique Casillas M.D. Transcribed by: DANAE Technologist: OCTAVIA Technical Comments Radiation Dose: Ka,r in mGy = 0 DAP = 0 Procedure Note Radiology, Radiologist, MD - 12/11/2023 Exam Date/Time: 12/10/2023 13:58 EST Reason for Exam: M17.11 Report IMPRESSION: NO EVIDENCE OF ACTIVE CHEST DISEASE. CLINICAL HISTORY: M17.11. PST COMMENT: The heart is normal in size. The mediastinum is unremarkable. The lungsappear clear. No infiltration nor pleural effusion is evident. Ordering Provider: Holden Egan FINAL REPORT Dictated: 12/11/2023 10:38 am Enrrique Casillas M.D. Signed (Electronic Signature): 12/11/2023 10:38 am Signed by: Enrrique Casillas M.D. Transcribed by: DANAE Technologist: OCTAVIA Technical Comments Radiation Dose: Ka,r in mGy = 0 DAP = 0 Holden Egan DO [facility] Final Resu lt documented in this encounter Visit Diagnoses Not on filedocumented in this encounter Care Teams Receptionist/Telephone Operator Relationship Specialty Start Date End Date Tim Earl MD PCP - General Family Medicine 07/23/23 01/28/25 Tim Earl MD [address] [place] [address] PCP - General Family Medicine 01/29/25 documented as of this encounter
--- OUTSIDE RECORDS SUMMARY | 2025-06-01 19:44 | XMS_ITS | Encounter Summary ---
Author Organization [facility] Address [address] [facility] [place] [address] Care Team Providers Care Director Of Infection Control Name Role Phone Tim Earl MD Primary Care Provider [phone] Tim Earl MD Primary Care Provider [phone] Encounter Details Date Type Department Care Team (Late st Contact Info) Description 12/31/2023 Orders Only [facility] NB ORTHO [address] [place] [phone] Holden Egan, [address] [place] [address] Primary osteoarthritis of right knee (Primary Dx) Social History Tobacco Use Types Packs/Day Years [...] Clinical Support [facility] AUD [address] [facility] [place] [phone] Rosalina Caballero, [facility] [address] [place] [address] 06/08/2025 4:20 PM EDT Office Visit [facility] NMA POD [address] [place] [address] Delonte Butt, DPM FACFAS [address] [place] [address] 06/10/2025 3:30 PM EDT Office Visit [facility] ENT [place] [address] [place] [address] Nick Walton, DO [address] [place] [address] 01/28/2026 3:30 PM EST Office Visit [facility] NB ORTHO [address] [place] [address] Holden Egan, DO [address] [place] [address] 06/07/2026 4:00 PM EDT Office Visit [facility] BCP OB [address] [place] [address] Wong Garcia, DO [address] [place] [address] documented as of this encounter Visit Diagnoses Diagnosis Primary osteoarthritis of right knee- Primary documented in this encounter Care Teams Director Of Infection Control Relationship Specialty Start Date End Date Tim Earl MD PCP - General Family Medicine 07/23/23 01/28/25 Tim Earl MD [address] [place], [place] [phone] PCP - General Family Medicine 01/29/25 documented as of this encounter
--- OUTSIDE RECORDS SUMMARY | 2025-06-01 19:44 | XMS_ITS | Clinical Summary ---
Author Organization [facility] Address [address] [place] [address] Care Team Providers Care Tapper Operator Name Role Phone Tim Earl MD Primary Care Provider [phone] Allergies No known active allergies Medications atorvastatin (Lipitor) 40 MG tablet Take 40 mg by mouth Daily Active Active Problems Problem Noted Date Diagnosed Date H/O: hysterectomy 06/01/2025 BPPV (benign paroxysmal positional vertigo), rig ht 02/17/2025 Cervicalgia 02/13/2025 Balance disorder 02/13/2025 Acute postoperative pain of right knee 4 S/P total knee arthroplasty, right 01/05/2024 Localized osteoarthritis of right knee 3 Chronic pain of right knee 05/12/2023 Encounters Date Type Department Care Team Description 06/01/2025 2:00 PM EDT Office Visit [facility] [address] [place] [place] [address] Kady Hernandez PA Well woman exam with routine gynecological exam; Breast cancer screening by mammogram; Osteoporosis, post-menopausal ; Encounter for screening mammogram for malignant neoplasm of breast; H/O: hysterectomy; Urinary urgency 06/01/[address] [facility] [address] [place] [address] Alma Friend LPN 06/01/2025 Bamboo flowsheet [facility] [address] [place] [address] Kady Hernandez PA 05/22/2025 Telephone [facility] [place] [address] [place] [address] Nick Walton, 03/31/2025 3:30 PM EDT Office Visit [facility] [address] [place] [phone] Holden Egan, DO Rotator cuff impingement syndrome of left shoulder (Primary Dx) 03/31/2025 Bamboo flowsheet [facility] [address] [facility] [place] [address] Holden Egan, 03/31/2025 Travel 03/16/2025 3:45 PM EDT Ancillary Procedure [facility] [address] [place] [phone] Left shoulder pain, unspecified chronicity; Rotator cuff impingement syndrome of left shoulder 03/16/2025 Travel 03/03/2025 3:30 PM EDT Treatment [facility] [address] [place] [phone] Mary Sevilla PTA Cervicalgia (Primary Dx); Balance disorder; BPPV (benign paroxysmal positional vertigo), right 03/03/2025 Bamboo flowsheet [facility] [address] [place] [address] Mary Sevilla PTA 03/03/2025 Travel from Last 3 Months Family History Medical History Relation Name Comments Heart disease Father Hyperlipidemia Father Breast cancer Mother Heart disease Paternal Grandfather Heart disease Paternal Grandmother No Known Problems Sister 2 sisters Relation Name Status Comments Father Maternal Grandfather Maternal Grandmother Mother Paternal Grandfather Paternal Grandmother Sister Social History Tobacco Use Types Packs/Day Years Used Date Smoking Tobacco: Never Smokeless Tobacco: Never Tobacco Cessation:Counseling Given: Not Answered Alcohol Use Standard Drinks/Week Comments Yes 2 (1 standard drink = 0.6 oz pur e alcohol) Caffeine: 1-2 cups/day Comments Unknown Sex and Gender Information Value Date Recorded Sex Assigned at Not on file Legal Sex Female 6:59 PM EDT Gender Identity Female 02/07/2023 6:59 PM EDT Sexual Orientation Not on file Last Filed Vital Signs Vital Sign Reading Time Taken Comments Blood Pressure 128/78 06/01/2025 2:12 PM EDT Pulse 74 03/10/2024 10:49 AM EDT Temperature 36.7 C (98.1 F) 06/10/2024 3:42 PM EDT Respiratory Rate - - Oxygen Saturation - - Inhaled Oxygen Concentration - - Weight 82.6 kg (182 lb) 06/01/2025 2:12 PM EDT Height 170.2 cm (5' 7 ) 06/01/2025 2:12 PM EDT Body Mass Index 28.51 06/01/2025 2:12 PM EDT Plan of Treatment Upcoming Encounters Date Type Department Care Team (Late st Contact Info) Description 06/04/2025 3:30 PM EDT Clinical Support [facility] [address] [place] [address] Rosalina Caballero, [facility] [address] [facility] [place], [place] [id number] 06/08/2025 4:20 PM EDT Office Visit [facility] [address] [place] [address] Delonte Butt, DPM [facility] [address] [place] [address] 06/10/2025 3:30 PM EDT Office Visit [facility] [place] [address] [place] [address] Nick Walton DO [address] [place] [address] 01/28/2026 3:30 PM EST Office Visit [facility] [address] [facility] [place] [address] Holden Egan, DO [address] [place] [address] 06/07/2026 4:00 PM EDT Office Visit [facility] [address] [facility] [place] [address] [place] [address] Wong Garcia, DO [address] [facility] [place] [address] Health Maintenance Due Date Last Done Comments CT Colonography 1967 FIT-DNA 1967 FIT 1967 FOBT 1967 Sigmoidoscopy 1967 Pap Smear 1988 Cervical Cancer Screening 1997 HPV/Cotest 1997 Mammogram 02/05/2019 02/05/2018 Influenza Vaccine (#1) 2025 4, 08/27/2023, 09/02/2022, Additional history exists Colonoscopy 01/18/2028 01/18/2018 Colorectal Cancer Screening 01/18/2028 Procedures Procedure Name Priority Date/Time Associated Diagnosis Comments MR SHOULDER LEFT WO IV CONTRAST Routine 03/16/2025 4:22 PM EDT Left shoulder pain, unspecified chronicity Rotator cuff impingement syndrome of left shoulder BI MAMMOGRAM SCREENING BILATERAL Routine 02/05/2018 12:00 PM EDT COLONOSCOPY Routine 01/18/2018 12:00 PM EST from Last 3 Months or Most Recently Relevant to Health Maintenance Results * MR shoulder left wo IV contrast (03/16/2025 4:22 PM EDT) Anatomical Region Laterality Modality Upper Extremities, Shoulder Left Magn etic Resonance 03/18/2025 8:58 AM EDT Impressions 03/18/2025 9:21 AM EDT Tiny low-grade articular surface tear of distal mid fibers of supraspinatus tendon just proximal to the footprint superimposed on mild tendinosis. Mild subscapularis tendinosis. Tear of the anterior superior through posterior superior labrum. Mild glenohumeral osteoarthritis. ELECTRONICALLY SIGNED BY: Jesse Hammonds DO Narrative 03/18/2025 9:21 AM EDT EXAM: MR SHOULDER LEFT WO IV CONTRAST [...] cartilage defect. No glenohumeral joint effusion . Procedure Note Jesse Hammonds, - 03/18/2025 EXAM: MR SHOULDER LEFT WO IV CONTRAST HISTORY: Shoulder pain. Rotator cuff tear. TECHNIQUE: Multiplanar multisequence MRI of the shoulder was performedWithout contrast. COMPARISON: Shoulder radiographs February 19, 2025 FINDINGS: The acromioclavicular joint is intact. The acromion is curved.Coracoclavicular ligament intact. No subacromial/subdeltoid bursalfluid. Tiny low-grade articular surface tear of distal mid fibers ofsupraspinatus tendon just proximal to the footprint superimposed on mildtendinosis. Mild subscapularis tendinosis. Infraspinatus and teres minortendons are intact. No atrophy or fatty infiltration of the rotator cuffmusculature. The intra-articular and extra-articular long head biceps tendon is intact.The biceps tendon resides within the bicipital groove. Tear of the anterior superior through posterior superior labrum.Partial- thickness cartilage loss of the medial humeral head and glenoidwithout well-defined cartilage defect. No glenohumeral joint effusion . IMPRESSION: Tiny low-grade articular surface tear of distal mid fibers ofsupraspinatus tendon just proximal to the footprint superimposed on mildtendinosis. Mild subscapularis tendinosis. Tear of the anterior superior through posterior superior labrum. Mild glenohumeral osteoarthritis. ELECTRONICALLY SIGNED BY: Jesse Hammonds DO Holden Egan DO IMG MRI PROCEDURES Final Res ult * Bilateral screening mammogram (02/05/2018 12:00 PM EDT) Anatomical Region Laterality Modality Breast Bilateral Mammography Narrative 02/05/2018 12:00 PM EDT PERFORMED AT [facility] LOCATION:[id number] Procedure Note CONVERSION, JORDON / Aria Gipson NP - 06/01/2023 PERFORMED AT [facility] LOCATION:[id number] Aria Gipson NP IMG BI PROCEDURES Final Result * Colonoscopy (01/18/2018 12:00 PM EST) Anatomical Region Laterality Modality Endoscopy 01/18/2018 12:0 0 PM EST Narrative 01/18/2018 12:00 PM EST PERFORMED AT [facility] LOCATION:[id number] Procedure Note CONVERSION, GENERIC - 04/11/2023 PERFORMED AT [facility] LOCATION:[id number] us Aria Gipson NP ENDOSCOPY PROCEDURE ORDERABLES Final Result from Last 3 Months or Most Recently Relevant to Health Maintenance Insurance [employer] Care Teams Tapper Operator Relationship Specialty Start Date End Date Tim Earl MD [address] [place] [address] PCP - General Family Medicine 01/29/25
--- OUTSIDE RECORDS SUMMARY | 2025-06-01 19:44 | XMS_ITS | Encounter Summary ---
Author Organization [facility] Address [address] [facility] [place] [address] Care Team Providers Care Director College Name Role Phone Tim Earl MD Primary Care Provider [phone] Tim Earl MD Primary Care Provider [phone] Encounter Details Date Type Department Care Team (Late Contact Info) Description 12/06/2023 Abstract [facility] [address] [facility] [address] [place] [address] Holden Egan, DO [address] [facility] [place] [address] Social History Tobacco Use Types Packs/Day Years [...] EDT Clinical Support [facility] [address] [place] [address] Rosalina Caballero, [facility] [address] [place] [address] 06/08/2025 4:20 PM EDT Office Visit [facility] [address] [place] [address] Delonte Butt, DPM [facility] [address] [place] [address] 06/10/2025 3:30 PM EDT Office Visit [facility] [place] [address] [place] [phone] Nick Walton, DO [address] [place] [address] 01/28/2026 3:30 PM EST Office Visit [facility] [address] [place] [phone] Holden Egan, DO [address] [place] [address] 06/07/2026 4:00 PM EDT Office Visit [facility] [address] [place] [address] Wong Garcia, DO [address] [place] [address] documented as of this encounter Visit Diagnoses Not on filedocumented in this encounter Care Teams Director College Relationship Specialty Start Date End Date Tim Earl MD PCP - General Family Medicine 07/23/23 01/28/25 Tim Earl MD [address] [place] [address] PCP - General Family Medicine 01/29/25 documented as of this encounter
[2025-06-04 16:09] LABS: Age Gdln ACOG Testing Note (.); IGP, Aptima HPV, rfx 16/18,45 Note (.)
== END 2025-06-01 19:37 | disposition home or self-care (01) ==
LOC: LAB 19:36
PROVIDERS: PCP Family Medicine; Visit Provider Physician Assistant
DX: Z01.419 Encounter for gynecological examination (general) (routine) without abnormal findings (principal)
CPT/HCPCS: 87624; 88175